=== PATIENT | male | born 1965 | race Two or more races ===

== ENCOUNTER 2020-09-12 12:32 | Emergency (ER) | payer OTHER ==
[~2020-09-12] VITALS: Ht 162.6 cm; Wt 70.3 kg
[2020-09-12 12:52] VITALS: BP 124/78
== END 2020-09-12 16:02 | disposition home or self-care (01) ==
LOC: ER 12:32
DX: R51.9 Headache, unspecified (principal)
CPT/HCPCS: 70450

== ENCOUNTER 2021-12-25 08:52 | Emergency (ER) | payer BC, OTHER ==
[~2021-12-25] VITALS: Ht 162.6 cm; Wt 66.0 kg
[2021-12-25 09:44] LABS: Basophils # (auto) 0 10 ^3/uL (0-0.2); Basophils % (auto) 0.6 % (0.0-2.0); Eosinophils # (auto) 0.1 10 ^3/uL (0-0.8); Eosinophils % (auto) 1.3 % (0.0-7.0); Hematocrit 43.5 % (41.0-53.0); Hemoglobin 14.7 g/dL (13.5-17.5); Lymphocytes # (auto) 1.4 10 ^3/uL (0.4-5.4); Lymphocytes % (auto) 26.6 % (10.0-50.0); Mean Corpuscular Hemoglobin 30.9 pg (28.0-32.0); Mean Corpuscular Hgb Conc. 33.8 g/dL (32.0-36.0); Mean Corpuscular Volume 91.5 fL (80.0-100.0); Monocytes # (auto) 0.6 10 ^3/uL (0-1.3); Monocytes % (auto) 11.6 % (0.0-12.0); Neutrophils # (auto) 3.2 10 ^3/uL (1.6-8.6); Neutrophils % (auto) 59.9 % (37.0-80.0); Nucleated Red Blood Cells % 0.1 %; Red Blood Cells 4.76 10^6/uL (4.5-5.90); Red Cell Distribution Width 12.8 % (11.8-14.3); White Blood Cell 5.4 10^3/uL (4.4-10.8)
[2021-12-25 10:00] LABS: Albumin 3.4 g/dL (3.4-5.0); Calcium 8.5 mg/dL (8.5-10.1); Potassium 4.1 mmol/L (3.5-5.1)
[2021-12-25 10:04] LABS: BUN/Creatinine Ratio 7.1; Bilirubin, Total 0.7 mg/dL (0.2-1.0); Total Protein 7.2 g/dL (6.4-8.2)
[2021-12-25 10:21] LABS: Urine Bacteria NONE SEEN /hpf (None Seen); Urine Blood Negative /uL (Negative); Urine Mucus FEW (None Seen); Urine Specific Gravity 1.015 (1.001-1.035); Urine WBC 1 /hpf (0 - 3)
[2021-12-25 10:22] LABS: Partial Thromboplastin Time 30.5 sec (24.6-33.4)
[2021-12-25 12:30] VITALS: BP 128/76
== END 2021-12-25 13:01 | disposition home or self-care (01) ==
LOC: ER 08:52
DX: K92.2 Gastrointestinal hemorrhage, unspecified (principal); E11.9 Type 2 diabetes mellitus without complications
CPT/HCPCS: 36415; 74176; 80053; 81001; 83690; 84484; 85025; 85610; 85730; 93005

== ENCOUNTER 2023-01-30 11:19 | Emergency (ER) | payer BC, MEDICAID ==
[~2023-01-30] VITALS: Ht 162.6 cm; Wt 66.3 kg
[2023-01-30] MEDS ORDERED: HYDR-3682 PO (14:56)
[2023-01-30] MEDS ORDERED: CALA1SUS2 EX (14:56)
[2023-01-30 15:08] VITALS: BP 149/84; PULSE 66; RESP 16; TEMP 97.9; O2SAT 100
== END 2023-01-30 15:08 | disposition home or self-care (01) ==
LOC: ER 11:19
DX: L29.9 Pruritus, unspecified (principal); R21 Rash and other nonspecific skin eruption; E11.9 Type 2 diabetes mellitus without complications; Z79.899 Other long term (current) drug therapy

== ENCOUNTER → 2023-11-10 | Outpatient (CLI) | payer MEDICAID ==
[~2023-11-10] MED LIST: CALA1SUS2 EX; HYDR-3682 PO
[2023-11-10 10:03] LABS: Alanine Aminotransferase 30 U/L (7-40); Albumin 4.2 g/dL (3.2-4.8); Alkaline Phosphatase 78 U/L (46-116); Anion Gap 4 (5-15); Aspartate Aminotransferase 26 U/L (13-40); BUN/Creatinine Ratio 9.3 (10.0-20.0); Bilirubin, Total 0.5 mg/dL (0.2-1.0); Blood Urea Nitrogen 8 mg/dL (9-23); Calcium 9.4 mg/dL (8.7-10.4); Carbon Dioxide 29 mmol/L (20-30); Chloride 106 mmol/L (98-107); Glucose 124 mg/dL (74-106); Sodium 139 mmol/L (136-145)
== END | disposition home or self-care (01) ==
LOC: LAB 08:26
PROVIDERS: ATTEND Orthopaedic Surgery Adult Reconstructive Orthopaedic Surgery
DX: E11.621 Type 2 diabetes mellitus with foot ulcer (principal)
CPT/HCPCS: 36415; 80053; 83036

== ENCOUNTER 2024-01-13 10:05 | Inpatient (IN) | payer MEDICAID ==
[~2024-01-13] VITALS: Ht 160 cm; Wt 64.2 kg
--- NOTE | 2024-01-13 10:49 | ED.PDOC ---
HPI (NEURO) HPI Comments 58 y.o male presents to the ED for a chief complaint of left sided numbness that started last night at 2200. Patient reports some tingling sensation to his left foot, nausea and sore throat this morning. Patient was seen at the clinic today and was sent to the ED to rule out a CVA. Patient denies any slurred speech, vision changes, chest pain, SOB, facial droopiness, fever or chills. Patient has a medical history of DM. Time Seen by MD: 10:41 Primary Care Provider: GEORGE Anderson Notes: Medications, Allergies Information Source: Patient Mode of Arrival: Wheelchair Severity: Moderate Timing: Hours Numbness Location: (L) Sided Onset: At rest Symptoms: Numbness History of: DM Modifying factors: Nothing Associated Signs and Symptoms: Numbness Past Medical History PAST MEDICAL HISTORY: DM Surgical History: Denies all surgeries Family History Family History: Reviewed,noncontributory to illness Social History Smoker: Non-Smoker Alcohol: Denies ETOH Use Drugs: Denies Drug Use Lives In: Home Constitutional: denies: chills, diaphoresis, fatigue, fever, malaise, sweats, weakness, others EENTM: reports: throat pain; denies: blurred vision, double vision, ear bleeding, ear discharge, ear drainage, ear pain, ear ringing, eye pain, eye redness, hearing loss, mouth pain, mouth swelling, nasal discharge, nose bleeding, nose congestion, nose pain, photophobia, tearing, throat swelling, voice changes, others Respiratory: denies: cough, hemoptysis, orthopnea, SOB at rest, shortness of breath, SOB with excertion, stridor, wheezing, others Cardiovascular: denies: chest pain, dizzy spells, diaphoresis, Dyspnea on exertion, edema, irregular heart beat, left arm pain, lightheadedness, palpitations, PND, syncope, others Gastrointestinal: reports: nausea; denies: abdomen distended, abdominal pain, blood streaked bowels, constipated, diarrhea, dysphagia, difficulty swallowing, hematemesis, melena, poor appetite, poor fluid intake, rectal bleeding, rectal pain, vomiting, others Genitourinary: denies: burning, dysuria, flank pain, frequency, hematuria, incontinence, penile discharge, penile sore, pain, testicle pain, testicle swelling, urgency, others Neurological: reports: left sided numbness; denies: dizziness, fainting, headache, left sided weakness, numbness, paresthesia, pre-existing deficit, right sided numbness, right sided weakness, seizure, speech problems, tingling, tremors, weakness, others Musculoskeletal: denies: back pain, gout, joint pain, joint swelling, muscle pain, muscle stiffness, neck pain, others Integumetry: denies: bruises, change in color, change in hair/nails, dryness, laceration, lesions, lumps, rash, wounds, others Allergic/Immunocompromised: denies: Difficulty Healing, Frequent Infections, Hives, Itching, others Hematologic/Lymphatic: denies: anemia, blood clots, easy bleeding, easy bruising, swollen glands, others Endocrine: denies: excessive hunger, excessive sweating, excessive thirst, excessive urination, flushing, intolerance to cold, intolerance to heat, unexplained weight gain, unexplained weight loss, others Psychiatric: denies: anxiety, bipolar disorder, depression, hopeless, panic disorder, schizophrenia, sleepless, suicidal, others All Other Systems: Reviewed and Negative Physical Exam General Appearance: Mild Distress HEENT: Normal ENT Inspection, Pharynx Normal, TMs Normal Neck: Full Range of Motion, Non-Tender, Normal, Normal Inspection Respiratory: Chest Non-Tender, Lungs Clear, No Accessory Muscle Use, No Respiratory Distress, Normal Breath Sounds Cardiovascular: No Edema, No JVD, No Murmur, No Gallop, Normal Peripheral P ulses, Regular Rate/Rhythm Breast Exam: Deferred Gastrointestinal: No Organomegaly, Non Tender, No Pulsatile Mass, Normal Bowel Sounds, Soft Genitalia: Deferred Pelvic: Deferred Rectal: Deferred Extremities: No calf tenderness, Normal capillary refill, No pedal edema Musculoskeletal : Apperance: Normal Neurologic: Alert, mud temperer II-XII nml as Tested, Motor Weakness, Normal Affect, Normal Mood, No Sensory Deficits Cerebellar Function: Normal Reflexes: Normal Skin: Dry, Pallor, Warm Lymphatic: No Adenopathy EKG EKG : Pulse Rate (adult): 100 Cardiac Rhythm: ST Was a procedure done? Was a procedure done?: No Differential Diagnosis (SZ) Seizure: N/A CVA: CVA, TIA General Weakness: Dehydration, Electrolyte imbalance X-Ray, Labs, Meds, VS Vital Signs Date Time Temp Pulse Resp B/P (MAP) Pulse Ox O2 Delivery O2 Flow Rate FiO2 01/13/24 15:40 82 17 95 Room Air* 0 21 01/13/24 15:40 82 17 110/69 (83) 95 01/13/24 15:05 99.2 99.2 01/13/24 15:05 99.2 01/13/24 13:55 100.1 01/13/24 13:48 100.1 01/13/24 13:48 100.1 100.1 01/13/24 12:59 100.0 01/13/24 12:49 100.0 99 18 144/84 (104) 98 100.0 01/13/24 12:49 99 18 98 Room Air 01/13/24 11:08 100 01/13/24 10:41 100.2 114 16 137/78 (97) 95 Lab Test 01/13/24 12:48 01/13/24 12:47 01/13/24 12:25 01/13/24 11:30 Range/Units SARS-CoV-2 Antigen (Rapid) Negative NEGATIVE Urine Color Light-yellow Yellow Urine Clarity Clear Clear Urine pH 6.5 5.0-9.0 Urine Specific [place] 1.017 1.001-1.035 Urine Protein Negative Negative Urine Ketones 1+ H Negative Urine Blood Negative Negative /uL Urine Nitrite Negative Negative Urine Bilirubin Negative Negative Urine Urobilinogen Normal Negative mg/dL Urine Leukocyte Esterase Negative Negative /uL Urine RBC <1 0 - 3 /hpf Urine WBC <1 0 - 3 /hpf Urine Squamous Epithelial Cells None seen <5 /hpf Urine Bacteria None seen None Seen /hpf Urine Mucus Few None Seen Urine Glucose Normal Normal mg/dL Troponin I High Sensitivity < 3 L < 3 L </=54 ng/L White Blood Count 6.3 4.4-10.8 10^3/uL Red Blood Count 5.05 4.5-5.90 10^6/uL Hemoglobin 16.3 13.5-17.5 g/dL Hematocrit 47.4 41.0-53.0 % Mean Corpuscular Volume 93.8 80.0-100.0 fL Mean Corpuscular Hemoglobin 32.3 H 28.0-32.0 pg Mean Corpuscular Hemoglobin Concent 34.4 32.0-36.0 g/dL Red Cell Distribution Width 13.6 11.8-14.3 % Platelet Count 138 L 140-450 10^3/uL Mean Platelet Volume 7.8 6.9-10.8 fL Neutrophils (%) (Auto) 71.9 37.0-80.0 % Lymphocytes (%) (Auto) 11.4 10.0-50.0 % Monocytes (%) (Auto) 15.9 H 0.0-12.0 % Eosinophils (%) (Auto) 0.6 0.0-7.0 % Basophils (%) (Auto) 0.2 0.0-2.0 % Neutrophils # (Auto) 4.5 1.6-8.6 10 ^3/uL Lymphocytes # (Auto) 0.7 0.4-5.4 10 ^3/uL Monocytes # (Auto) 1.0 0-1.3 10 ^3/uL Eosinophils # (Auto) 0 0-0.8 10 ^3/uL Basophils # (Auto) 0 0-0.2 10 ^3/uL Nucleated Red Blood Cells 0.1 % Sodium Level 136 136-145 mmol/L Potassium Level 5.0 3.5-5.1 mmol/L Chloride Level 103 98-107 mmol/L Carbon Dioxide Level 30 20-31 mmol/L Anion Gap 3 L 5-15 Blood Urea Nitrogen < 5 L 9-23 mg/dL Creatinine 1.11 0.700-1.30 mg/dL Glomerular Filtration Rate Calc 77 >90 mL/min BUN/Creatinine Ratio 4.5 L 10.0-20.0 Serum Glucose 175 H 74-106 mg/dL Calcium Level 10.3 8.7-10.4 mg/dL Current Medications Medications (Trade) Dose Ordered Sig/Gonzalez Route Start Time Stop Time Status Last Admin Acetaminophen (Tylenol Tablet) 1,000 mg ONCE ONCE PO 01/13/24 13:00 01/13/24 13:01 DC 01/13/24 12:59 Ibuprofen (Motrin Tablet) 600 mg ONCE ONCE PO 01/13/24 14:00 01/13/24 14:01 DC 01/13/24 13:55 EXAM: CT HEAD WITHOUT CONTRAST IMPRESSION: 1. No CT evidence of acute intracranial abnormality. If there is clinical concern for acute ischemia, MRI is recommended for further evaluation. The patient was given acetaminophen 1000 mg by mouth The patient was then given Motrin 600 mg by mouth The patient's urine test is negative The CBC and chemistry panel are within normal limits The patient was still having significant amount of generalized weakness The patient is now afebrile after receiving the above medication The patient was admitted Time of 1ST Reevaluation: 10:47 Reevaluation 1ST: Unchanged Patient Education/Counseling: Diagnosis, Treatment, Prognosis Family Education/Counseling: No Family Present Departure 1 Departure Time of Disposition: 16:39 Impression: Primary Impression: Left sided numbness Disposition: 09 ADMITTED INPATIENT Admit to: [facility] Condition: Fair Critical Care Note Critical Care Time?: Yes (35 min-critical care time only) Stability Stability form required: Yes Unstable for transfer: Telemetry monitoring (Telemetry monitoring required), ED Physician Assesment (Clinical assesment) I personally scribed for MARIETTA PHILLIP MD ([email or web address]) on 01/13/24 at 10:49. Electronically submitted by Saumya Ayala ([facility]). I personally scribed for MARIETTA PHILLIP MD ([email or web address]) on 01/13/24 at 11:08. Electronically submitted by Saumya [facility]ala ([facility] I personally scribed for MARIETTA PHILLIP MD ([email or web address]) on 01/13/24 at 12:59. Electronically submitted by Saumya Ayala ([facility]). MARIETTA PHILLIP MD Jan 13, 2024 10:49
[2024-01-13 11:51] LABS: Chloride 103 mmol/L (98-107); Sodium 136 mmol/L (136-145)
[2024-01-13 11:52] LABS: Anion Gap 3 (5-15); Calcium 10.3 mg/dL (8.7-10.4); Carbon Dioxide 30 mmol/L (20-31)
[2024-01-13 11:57] LABS: Glucose 175 mg/dL (74-106)
[2024-01-13 11:58] LABS: BUN/Creatinine Ratio 4.5 (10.0-20.0); Blood Urea Nitrogen < 5 mg/dL (9-23)
[2024-01-13 12:01] LABS: Basophils # (auto) 0 10 ^3/uL (0-0.2); Basophils % (auto) 0.2 % (0.0-2.0); Eosinophils # (auto) 0 10 ^3/uL (0-0.8); Eosinophils % (auto) 0.6 % (0.0-7.0); Hematocrit 47.4 % (41.0-53.0); Hemoglobin 16.3 g/dL (13.5-17.5); Lymphocytes # (auto) 0.7 10 ^3/uL (0.4-5.4); Lymphocytes % (auto) 11.4 % (10.0-50.0); Mean Corpuscular Hemoglobin 32.3 pg (28.0-32.0); Mean Corpuscular Hgb Conc. 34.4 g/dL (32.0-36.0); Mean Corpuscular Volume 93.8 fL (80.0-100.0); Monocytes % (auto) 15.9 % (0.0-12.0); Neutrophils # (auto) 4.5 10 ^3/uL (1.6-8.6); Neutrophils % (auto) 71.9 % (37.0-80.0); Nucleated Red Blood Cells % 0.1 %; Platelet Count (auto) 138 10^3/uL (140-450); Red Blood Cells 5.05 10^6/uL (4.5-5.90); Red Cell Distribution Width 13.6 % (11.8-14.3); White Blood Cell 6.3 10^3/uL (4.4-10.8)
--- NOTE | 2024-01-13 12:19 | DVH ---
EXAM: CT HEAD WITHOUT CONTRAST INDICATION: left side numbness TECHNIQUE: CT of the head without intravenous contrast. Radiation Dose Information: CT Dose: CTDI volume is 53.24 mGy. Dose-length product is 942.65 mGy*cm The dose indicators for CT are the volume Computed Tomography (CT) Dose Index (CTDIvol) and the Dose Length Product (DLP), and are measured in units of mGy and mGy-cm, respectively. These indicators are not patient dose, but values generated from the CT scanner acquisition factors. The report includes radiation exposure data for exposures received during this examination. COMPARISON: HEAD WITHOUT CONTRAST on DOS: 09/12/20 FINDINGS: There is no evidence of acute intracranial hemorrhage, extra-axial collection, mass effect, midline s hift, herniation or hydrocephalus. The ventricles, sulci and cisterns are age appropriate. The hull-white differentiation is intact. Patchy periventricular and subcortical white matter hypoattenuation is nonspecific but may be related to small vessel ischemic disease. Right maxillary sinus mucous retention cyst versus polyp. The bilateral mastoid air cells are clear. The surrounding soft tissues and osseous structures are unremarkable. IMPRESSION: 1. No CT evidence of acute intracranial abnormality. If there is clinical concern for acute ischemia, M RI is recommended for further evaluation. HS:Y
[2024-01-13] MEDS: ACETAMINOPHEN 500 MG TAB PO ONE (12:59)
[2024-01-13 13:14] LABS: Urine Bacteria None Seen /hpf (None Seen)
[2024-01-13 13:31] LABS: Urine Blood Negative /uL (Negative); Urine Clarity Clear (Clear); Urine Color Light-Yellow (Yellow); Urine Mucus FEW (None Seen); Urine Protein, UAD Negative (Negative); Urine Specific Gravity 1.017 (1.001-1.035); Urine Urobilinogen Normal (Negative); Urine WBC <1 /hpf (0 - 3); Urine pH 6.5 (5.0-9.0)
[2024-01-13] MEDS: IBUPROFEN 600 MG TAB PO ONE (13:55)
[2024-01-13 14:02] LABS: COVID19 ANTIGEN SOFIA FIA NEGATIVE (NEGATIVE)
[2024-01-13 15:40] VITALS: PULSE 82; RESP 17; O2SAT 95
[2024-01-13] MEDS ORDERED: ONDANSETRON HCL 4 MG/2 ML VIAL IV PRN (17:45)
[2024-01-13] MEDS ORDERED: DEXTROSE (50%) 50ML SYRG IV PRN (18:00)
[2024-01-13 18:36] VITALS: PULSE 70; RESP 17; O2SAT 95
--- NOTE | 2024-01-13 18:54 | DVHHP2 ---
History of Present Illness Reason for Visit: Left-sided numbness History of Present Illness 58-year-old male presented to the ED with chief complaint of left-sided numbness, that started last night at 10:00 p.m.. Patient reports some tingling sensation to the left foot, nausea and sore throat this morning. Patient denies any slurred speech, vision changes, chest pain, facial drooping, shortness of breath, fever or chills. Currently patient does not have the numbness any longer. Once patient was in ER bed he no longer had the numbness. Patient was admitted for further evaluation medical management. Past Medical History Diabetes mellitus type 2 Past Surgical History Denies Family History: None Family History Reviewed noncontributory to the management of this case Smoke: No ALCOHOL: none Drugs: None Lives: with Family Review of Systems Constitutional: No: Fever, Chills, Sweats, Weakness, Malaise, Other Eyes: No: Pain, Vision change, Conjunctivae inflammation, Eyelid inflammation, Other, Redness ENT: No: Ear pain, Ear discharge, Nose pain, Nose discharge, Nose congestion, Mouth pain, Mouth swelling, Throat pain, Throat swelling, Other Respiratory: No: Cough, Dry, Shortness of breath, SOB with excertion, Wheezing, Hemoptysis, Pleuritic Pain, Sputum, Wheezing, Other Cardiovascular: No: Chest Pain, Palpitations, Orthopnea, Paroxysmal Noc. Dyspnea, Edema, Lt Headedness, Other Gastrointestinal: No: Nausea, Vomiting, Abdominal Pain, Diarrhea, Constipation, Melena, Hematochezia, Other Genitourinary: No Dysuria, No Frequency, No Incontinence, No Hematuria, No Retention, No Other Musculoskeletal: No: other, neck pain, shoulder pain, arm pain, back pain, hand pain, leg pain, foot pain Skin: No: Rash, Lesions, Jaundice, Bruising, Other Neurological: No: Weakness, Numbness, Incoordination, Change in speech, Confusion, Seizures, Other Allergies: Coded Allergies: NO KNOWN ALLERGIES (Unverified , 09/12/20) Medications Current Medications Medications Dose Ordered Sig/Gonzalez Route Start Time Stop Time Status Last Admin Dose Admin Acetaminophen 650 mg Q6HP PRN PO 01/13/24 17:45 Acetaminophen/ Hydrocodone Bitart 1 tab Q4HP PRN PO 01/13/24 17:45 Ondansetron HCl 4 mg Q4HP PRN IV 01/13/24 17:45 Guaifenesin/ Dextromethorphan 10 ml Q4HP PRN PO 01/13/24 17:45 Diagnostic Test (Pha) 1 strip ACHS 01/13/24 22:00 Insulin Human Regular HS SC 01/13/24 22:00 Insulin Human Regular AC SC 01/14/24 07:00 Dextrose 50 ml UD PRN IV 01/13/24 18:00 Exam Vital Signs Vital Signs Date Time Temp Pulse Resp B/P (MAP) Pulse Ox O2 Delivery O2 Flow Rate FiO2 01/13/24 18:00 67 15 107/65 (79) 92 01/13/24 15:40 Room Air* 0 21 01/13/24 15:05 99.2 99.2 General Appearance: Alert, Oriented X3, Cooperative, No acute distress HEENT: Atraumatic, PERRLA, EOMI, Mucous membr. moist/pink Respiratory: Clear to auscultation, Normal air movement Cardiovascular: Regular rate, Normal S1, Normal S2, No murmurs Abdominal: Normal bowel sounds, Soft, No tenderness, No hepatospenomegaly, No masses Extremities: No clubbing, No cyanosis, No edema, Normal pulses, No tenderness/swelling Skin: No rashes, No breakdown, No significant lesion Neuro: Normal gait, Normal speech, Strength at 5/5 X4 ext, Normal tone, Sensation intact, Cranial nerves 3-12 NL, Reflexes 2+ Psych/Mental Status: Mental status NL, Mood NL Labs/Xrays Labs, imaging and ED notes reviewed Labs Test 01/13/24 12:48 01/13/24 12:47 01/13/24 12:25 01/13/24 11:30 Range/Units SARS-CoV-2 Antigen (Rapid) Negative NEGATIVE Urine Color Light-yellow Yellow Urine Clarity Clear Clear Urine pH 6.5 5.0-9.0 Urine Specific [place] 1.017 1.001-1.035 Urine Protein Negative Negative Urine Ketones 1+ H Negative Urine Blood Negative Negative /uL Urine Nitrite Negative Negative Urine Bilirubin Negative Negative Urine Urobilinogen Normal Negative mg/dL Urine Leukocyte Esterase Negative Negative /uL Urine RBC <1 0 - 3 /hpf Urine WBC <1 0 - 3 /hpf Urine Squamous Epithelial Cells None seen <5 /hpf Urine Bacteria None seen None Seen /hpf Urine Mucus Few None Seen Urine Glucose Normal Normal mg/dL Troponin I High Sensitivity < 3 L </=54 ng/L White Blood Count 6.3 4.4-10.8 10^3/uL Red Blood Count 5.05 4.5-5.90 10^6/uL Hemoglobin 16.3 13.5-17.5 g/dL Hematocrit 47.4 41.0-53.0 % Mean Corpuscular Volume 93.8 80.0-100.0 fL Mean Corpuscular Hemoglobin 32.3 H 28.0-32.0 pg Mean Corpuscular Hemoglobin Concent 34.4 32.0-36.0 g/dL Red Cell Distribution Width 13.6 11.8-14.3 % Platelet Count 138 L 140-450 10^3/uL Mean Platelet Volume 7.8 6.9-10.8 fL Neutrophils (%) (Auto) 71.9 37.0-80.0 % Lymphocytes (%) (Auto) 11.4 10.0-50.0 % Monocytes (%) (Auto) 15.9 H 0.0-12.0 % Eosinophils (%) (Auto) 0.6 0.0-7.0 % Basophils (%) (Auto) 0.2 0.0-2.0 % Neutrophils # (Auto) 4.5 1.6-8.6 10 ^3/uL Lymphocytes # (Auto) 0.7 0.4-5.4 10 ^3/uL Monocytes # (Auto) 1.0 0-1.3 10 ^3/uL Eosinophils # (Auto) 0 0-0.8 10 ^3/uL Basophils # (Auto) 0 0-0.2 10 ^3/uL Nucleated Red Blood Cells 0.1 % Sodium Level 136 136-145 mmol/L Potassium Level 5.0 3.5-5.1 mmol/L Chloride Level 103 98-107 mmol/L Carbon Dioxide Level 30 20-31 mmol/L Anion Gap 3 L 5-15 Blood Urea Nitrogen < 5 L 9-23 mg/dL Creatinine 1.11 0.700-1.30 mg/dL Glomerular Filtration Rate Calc 77 >90 mL/min BUN/Creatinine Ratio 4.5 L 10.0-20.0 Serum Glucose 175 H 74-106 mg/dL Hemoglobin A1c 7.1 H <5.7 % A1C Calcium Level 10.3 8.7-10.4 mg/dL Assessment/Plan Assessment/Plan Rule out CVA Admit to medical/surgical CTA head showed no acute findings Troponins negative x3 Monitor neuro goes for any signs of deficits throughout shift Diabetes mellitus type 2 Accu-Cheks a.c. HS Insulin sliding scale Hemoglobin A1c 7.1 FEN/PPX GI and VTE prophylaxis not indicated Consistent carb diet Plan discussed with: Patient My Orders Orders - CHERIE OCHOA Procedure Category Date Status Time Admit ADMIT 01/13/24 Transmitted 17:43 Code Status CODE 01/13/24 Transmitted 17:43 Vital Signs [facility] 01/13/24 In Process 17:43 Review Orders With [facility] 01/13/24 In Process Adm. 17:43 Bedrest With Bathroom [facility] 01/13/24 In Process Privileg 17:43 Acetaminophen Tablet [facility] 01/13/24 In Process (Tylenol Tablet) 17:45 Notify Md Of Changes [facility] 01/13/24 In Process From Base 17:43 Advance Directive [facility] 01/13/24 In Process 17:43 Basic Metabolic Panel LAB 01/14/24 Verified 04:00 Complete Blood Count LAB 01/14/24 Verified 04:00 Patient Condition ORDERS 01/13/24 Transmitted 17:43 Allergies [facility]A 01/13/24 In Process 17:43 Hydrocodone-Acet PHA 01/13/24 In Process 5/325mg Tab ([place] 17:45 Ondansetron Hcl PHA 01/13/24 In Process (Zofran) 17:45 Guaifenesin-Dextromet PHA 01/13/24 In Process Liquid (Robitussin 17:45 Glucose Blood PHA 01/13/24 In Process (Accu-Chek Comfort 22:00 Insulin R (Human) PHA 01/13/24 In Process (Insulin R) 22:00 Insulin R (Human) PHA 01/14/24 In Process (Insulin R) 07:00 Dextrose 50% Syringe PHA 01/13/24 In Process 18:00 Get List Of Home ORDERS 01/13/24 Verified Medications 18:46 Date of Service: Jan 13, 2024 Billing Provider: CHERIE OCHOA Common Visit Codes: [id number] INP/OBS CARE (HIGH) CHERIE OCHOA Jan 13, 2024 18:54
[2024-01-13] MEDS ORDERED: METF-371 PO (18:55)
[2024-01-13] MEDS ORDERED: SEMA4INJ SC (18:55)
[2024-01-13 20:55] VITALS: BP 110/63; PULSE 67; RESP 17; TEMP 98.2; O2SAT 97
[2024-01-13] MEDS: ACCU-CHEK COMFORT CURVE STRIP VI SCH (23:11)
[2024-01-13] MEDS: guaiFENesin-DM 100/10mg/5ml SYR PO PRN (23:11)
[2024-01-13] MEDS: InsuLIN REG 1unit/0.01ml Soln (100units/ml) SC SCH (23:35)
[2024-01-14 00:59] VITALS: BP 114/63; PULSE 67; RESP 18; TEMP 98.4; O2SAT 100
[2024-01-14 05:00] VITALS: BP 127/64; PULSE 76; RESP 17; TEMP 98.1; O2SAT 96
[2024-01-14] MEDS: ACETAMINOPHEN 325 MG TAB PO PRN (06:01)
[2024-01-14] MEDS: InsuLIN REG 1unit/0.01ml Soln (100units/ml) SC SCH (06:07)
[2024-01-14 06:09] LABS: Basophils # (auto) 0 10 ^3/uL (0-0.2); Basophils % (auto) 0.3 % (0.0-2.0); Eosinophils # (auto) 0.1 10 ^3/uL (0-0.8); Hematocrit 44.8 % (41.0-53.0); Hemoglobin 15.7 g/dL (13.5-17.5); Lymphocytes # (auto) 0.9 10 ^3/uL (0.4-5.4); Lymphocytes % (auto) 17.6 % (10.0-50.0); Mean Corpuscular Hemoglobin 32.5 pg (28.0-32.0); Monocytes # (auto) 0.7 10 ^3/uL (0-1.3); Monocytes % (auto) 15.2 % (0.0-12.0); Neutrophils # (auto) 3.2 10 ^3/uL (1.6-8.6); Neutrophils % (auto) 65.9 % (37.0-80.0); Nucleated Red Blood Cells % 0.1 %; Platelet Count (auto) 118 10^3/uL (140-450); Red Blood Cells 4.82 10^6/uL (4.5-5.90); Red Cell Distribution Width 13.7 % (11.8-14.3); White Blood Cell 4.9 10^3/uL (4.4-10.8)
[2024-01-14 06:26] LABS: Anion Gap 7 (5-15); Carbon Dioxide 26 mmol/L (20-31); Chloride 105 mmol/L (98-107); Potassium 4.1 mmol/L (3.5-5.1); Sodium 138 mmol/L (136-145)
[2024-01-14 06:27] LABS: Calcium 9.3 mg/dL (8.7-10.4)
[2024-01-14 06:32] LABS: BUN/Creatinine Ratio 7.7 (10.0-20.0); Blood Urea Nitrogen 7 mg/dL (9-23); Glucose 127 mg/dL (74-106)
[2024-01-14 09:32] VITALS: BP 109/59; PULSE 91; RESP 17; TEMP 100.7; O2SAT 93
[2024-01-14 13:00] VITALS: BP 110/55; PULSE 87; RESP 17; TEMP 98; O2SAT 94
--- NOTE | 2024-01-14 16:27 | DVHPN2 ---
Progress Note - Dictate Date Seen: Jan 14, 2024 Medical Necessity Reason Pt with a Central, PICC or Fol: No Subjective Took over patient's care today as transferred care to ca by hospitalist. Patient's chart is reviewed and seen and evaluated. Admitted here overnight for slurred speech. Which seems to be improved today. TIA workup is undergoing. He is tolerating oral diet. vital signs Vital Sign Date Time Temp Pulse Resp B/P (MAP) Pulse Ox O2 Delivery O2 Flow Rate FiO2 01/14/24 13:00 98.0 87 17 110/55 (73) 94 98.0 01/14/24 08:00 Room Air* 0 21 Total Intake and Output 01/13/24 01/13/24 01/14/24 15:00 23:00 07:00 Intake Total 200 ml 400 ml Balance 200 ml 400 ml medications Current Medications Medications Dose Ordered Sig/Gonzalez Route Start Time Stop Time Status Last Admin Dose Admin Acetaminophen 650 mg Q6HP PRN PO 01/13/24 17:45 01/14/24 06:01 650 MG Acetaminophen/ Hydrocodone Bitart 1 tab Q4HP PRN PO 01/13/24 17:45 Ondansetron HCl 4 mg Q4HP PRN IV 01/13/24 17:45 Guaifenesin/ Dextromethorphan 10 ml Q4HP PRN PO 01/13/24 17:45 01/13/24 23:11 10 ML Diagnostic Test (Pha) 1 strip ACHS 01/13/24 22:00 01/14/24 12:16 1 STRIP Insulin Human Regular HS SC 01/13/24 22:00 01/13/24 23:35 3 UNITS Insulin Human Regular AC SC 01/14/24 07:00 01/14/24 06:07 2 UNITS Dextrose 50 ml UD PRN IV 01/13/24 18:00 objective Alert awake oriented x3. Japanese-speaking Ativan. Not confused. HEENT neck supple no JVD pupils equal round react to light. Heart regular rate and rhythm S1-S2 without murmurs. Lungs fair air movement chest tube will expansion no rales wheezes. Abdomen is soft nontender nondistended positive bowel sounds. Extremities no edema positive distal pedal pulses. Neurologically no focal neurologic deficits noted. laboratory and microbiology Laboratory Tests 01/14/24 05:30 Test 01/14/24 05:30 Range/Units Serum Glucose 127 H 74-106 mg/dL Assessment/Plan Hypertension, diabetes mellitus type 2 TIA versus CVA I will start him on aspirin and a statin. We will check his lipid panel. We will control his blood pressure. Neurological consultation. MRI of the brain without contrast. CT angiogram of the head and neck ruled out any stenosis. 2D echocardiogram. Patient underwent counseling regarding diet exercise and good blood pressure control. Otherwise further clinical management per clinical course and pending evaluations studies. Discussed with the patient as well as nurse at bedside regarding care plan. Problems(with codes): (1) Left sided numbness (2) DM (diabetes mellitus) (3) Headache Plan discussed with: Patient, Other Date of Service: Jan 14, 2024 Billing Provider: BERTA MENA MD Common Visit Codes: [id number] INP/OBS CARE(MOD) BERTA MENA MD Jan 14, 2024 16:27
[2024-01-14 17:19] VITALS: BP 106/59; PULSE 94; RESP 18; TEMP 99.5; O2SAT 96
--- NOTE | 2024-01-14 18:03 | DVH ---
Procedure: CT ANGIO HEAD/Neck HISTORY: cva/tia Comparison Study: None Exam Date:01/14/2024 04:58 PM TECHNIQUE: CTA head without and with intravenous contrast. CTA neck with intravenous contrast. [employer]D [employer] postprocessing was performed and images were used for interpretation and reporting. Radiation Dose : CT Dose: CTDI volume is 5.18 mGy. Dose-length product is 868.41 mGy*cm Omnipaque 350: 100 mL FINDINGS: CTA head: There is normal enhancement of the visualized distal internal carotid, anterior and middle cerebral a rteries. There is a normal anterior communicating artery complex. There are bilateral posterior commu nicating arteries. The vertebral, basilar, cerebellar and posterior cerebral arteries are within norm al limits. The early parenchymal enhancement is grossly unremarkable. The visualized intracranial aiden ous structures are grossly unremarkable. CTA neck: The visualized thoracic aortic arch and proximal great vessels are unremarkable. The left common, int ernal and external carotid arteries are within normal limits. The right common, internal and external carotid arteries are within normal limits. The cervical segments of the right and left vertebral art eries are within normal limits. The limited visualized lung apices are clear. The surrounding soft ti ssues and osseous structures are otherwise unremarkable. IMPRESSION: 1. No evidence of hemodynamically significant intracranial stenosis, proximal occlusion or aneurysm. No evidence of hemodynamically significant cervical stenosis or dissection. CAROTID STENOSIS REFERENCE Distal internal carotid artery diameter as the denominator for stenosis measurement: MILD = <50% stenosis. MODERATE = 50-69% stenosis. SEVERE = 70-89% stenosis. CRITICAL = 90-99% stenosis. OCCLUDED = 100% stenosis. All CT scans at this medical facility are performed using dose modulation techniques as appropriate t o a performed exam including the following: Automated exposure control was utilized; adjustment of th e MA and/or KV according to patient size; and use of iterative reconstruction technique.
[2024-01-14] MEDS: ASPirin 81 mg TAB PO ONE (19:54)
[2024-01-14] MEDS: SODIUM CHLORIDE 0.9% 1,000 ML IV SCH (19:54)
[2024-01-14 20:52] VITALS: BP 111/69; PULSE 82; RESP 17; TEMP 98.3; O2SAT 94
[2024-01-14] MEDS: ATORVASTATIN 20 MG TAB PO SCH (22:47)
[2024-01-15] VITALS (7 sets, daily range): BP systolic 105–136; BP diastolic 59–70; PULSE 74–108; RESP 15–19; TEMP 97.9–102.6; O2SAT 91–97
--- NOTE | 2024-01-15 02:32 | BSKYNEURO ---
[facility] Note # Demographics Consult Type: Acute Stroke Level 2 (4.5-24 hrs) Patient Location: Inpatient First Name: Jerome Last Name: Ted Date of : 1965 Age: 58 Gender: Male Facility: [facility] Time of Initial Page (): 01/15/2024, 02:12 Time of Return Call (): 01/15/2024, 02:12 # HPI Chief Complaint: - numbness - speech changes History: 58 yo M p/w L sided numbness and slurred speech. His symptoms resolved upon arrival to the ER. Last Known Normal: 2 days ago # Scores Time of exam and NIHSS (): 01/15/2024, 02:27 Level of Consciousness 1a: [0] = Alert; keenly responsive LOC Questions 1b: [0] = Answers both questions correctly LOC Commands 1c: [0] = Performs both tasks correctly Best Gaze 2: [0] = Normal Visual 3: [0] = No visual loss Facial Palsy 4: [0] = Normal symmetrical movements Motor Arm Left 5a: [0] = No drift Motor Arm Right 5b: [0] = No drift Motor Leg Left 6a: [0] = No drift Motor Leg Right 6b: [0] = No drift Limb Ataxia 7: [0] = Absent Sensory 8: [0] = Normal Best Language 9: [0] = No aphasia Dysarthria 10: [0] = Normal Extinction and Inattention 11: [0] = No abnormality NIHSS Total: 0 ABCD2 Score for TIA: [0] = Age >/= 60 years: No [0] = Clinical features of the TIA: other symptoms [2] = Duration of symptoms: >/= 60 minutes [1] = History of diabetes: Yes ABCD2 Total: 3 # ROS Additional: - complete review of systems otherwise negative # PMH-FH-SH Past Medical History: - Diabetes # Data Head CT: - no bleed CTA Head: no large vessel occlusion # Assessment Impression: - Transient Ischemic Attack # Plan Thrombolytic/Intervention: NOT IV Thrombolysis or IA Intervention candidate Thrombolytic Exclusion: > 4.5 hours Intraarterial Exclusion: - no large vessel occlusion (LVO) Labs: - hemoglobin A1c - lipid panel Imaging: (urgency: routine): - MRI Brain without contrast Diagnostic Test: - echo with bubble study Medication: - aspirin 81 mg daily - start statin with goal of LDL < 70 Other: - If patient has any neurological deterioration please call me back immediately - telemetry monitoring - neurology referral as outpatient # Logistics Attestation of consult completion: The patient is located at: [facility]. Facility staff participated in the visit. I performed this telemedicine visit from my offsite office utilizing interactive 2 way audio and visual telecommunication technology. Total time spent in telemedicine encounter: I spent 20 minutes reviewing clinical data and/or imaging, obtaining history, examining the patient, communicating with the onsite care team, and in preparation of this report. # Demographics First Name: Jerome Last Name: Jean Facility: [facility] Electronically signed at 01/15/2024 02:31 (Arthur Time) by Raphael Gutierrez MD Yes RAPHAEL GUTIERREZ MD Jan 15, 2024 02:32
[2024-01-15 07:24] LABS: Chloride 103 mmol/L (98-107); Potassium 4.7 mmol/L (3.5-5.1); Sodium 137 mmol/L (136-145)
[2024-01-15 07:25] LABS: Anion Gap 5 (5-15); Calcium 9.1 mg/dL (8.7-10.4); Carbon Dioxide 29 mmol/L (20-31)
[2024-01-15 07:30] LABS: BUN/Creatinine Ratio 9.1 (10.0-20.0); Blood Urea Nitrogen 9 mg/dL (9-23); Glucose 126 mg/dL (74-106); Triglycerides 80 mg/dL (< 150)
[2024-01-15 07:31] LABS: LDL Cholesterol 102 mg/dL (< 100)
[2024-01-15 07:32] LABS: Cholesterol 155 mg/dL (< 200); HDL Cholesterol 44 mg/dL (40-59)
[2024-01-15] MEDS: ASPirin 81 mg TAB PO SCH (08:10)
[2024-01-15] MEDS: HYDROcodone-ACET 5/325MG TAB PO PRN (08:10)
--- NOTE | 2024-01-15 11:59 | DVH ---
EXAMINATION: MRI BRAIN HEAD WO CONTRAST INDICATION: CVA/ TIA COMPARISON: CT scan of the head dated 01/13/2024. TECHNIQUE: Multiplanar, multisequence magnetic resonance imaging of the brain was performed without the use of i ntravenous contrast. FINDINGS: No evidence of acute infarct. No intracranial hemorrhage. No mass effect. Posterior fossa structures are unremarkable. There is periventricular/deep white matter T2/FLAIR hyperintensity is nonspecific, but most commonly associated with chronic microvascular disease. The ventricles and sulci are normal in size for age. Clear basal cisterns. Flow voids in the major intracranial vessels are maintained. No abnormality of the orbits. Mastoid air cells are clear. There is mucosal thickening in the right maxillary sinus. No abnormality of the visualized osseous structures and extracranial soft tissues. IMPRESSION: 1. No acute infarct, intracranial hemorrhage, mass effect, or hydrocephalus.
--- NOTE | 2024-01-15 14:18 | DVH ---
CHEST RADIOGRAPH Indication:fever Technique: Single frontal view of the chest was obtained Comparison: EKG on DOS: 12/25/21 FINDINGS: Lines and Tubes: None Lungs: Infiltrate and or atelectasis right lower lobe with elevation of the right diaphragm.. Pleura: No effusion. No pneumothorax. Cardiomediastinal contours: Unremarkable Bones: No acute osseous abnormality. IMPRESSION: 1. Infiltrate right lower lobe with atelectasis elevation of right diaphragm.
--- NOTE | 2024-01-15 16:06 | DVHPN2 ---
Subjective Patient is clinically stable except that he had a fever up to 101 today. Patient denies any cough or congestion. Urinalysis does not show any evidence of infection. Changes from previous H/P or p: No Changes Eyes: No Pain, No Vision change, No Conjunctivae inflammation, No Eyelid inflammation, No Other, No Redness ENT: No Ear pain, No Ear discharge, No Nose pain, No Nose discharge, No Nose congestion, No Mouth pain, No Mouth swelling, No Throat pain, No Throat swelling, No Other Cardiovascular: No Chest Pain, No Palpitations, No Orthopnea, No Paroxysmal Noc. Dyspnea, No Edema, No Lt Headedness, No Other Respiratory: No Cough, No Dry, No Shortness of breath, No SOB with excertion, No Wheezing, No Hemoptysis, No Pleuritic Pain, No Sputum, No Other Gastrointestinal: No Nausea, No Vomiting, No Abdominal Pain, No Diarrhea, No Constipation, No Melena, No Hematochezia, No Other Genitourinary: No Dysuria, No Frequency, No Incontinence, No Hematuria, No Retention, No Other Musculoskeletal: No other, No neck pain, No shoulder pain, No arm pain, No back pain, No hand pain, No leg pain, No foot pain Skin: No Rash, No Lesions, No Jaundice, No Bruising, No Other Objective Vitals Vital Signs Date Time Temp Pulse Resp B/P (MAP) Pulse Ox O2 Delivery O2 Flow Rate FiO2 01/15/24 13:00 97.9 77 15 123/68 (86) 96 97.9 01/15/24 08:00 Room Air* 0 21 Intake/Output Intake and Output 01/15/24 07:00 Intake Total 1220 ml Output Total 200 ml Balance 1020 ml Intake Oral 420 ml IV Total 800 ml Output Urine Total 200 ml # Voids 2 Exam Comfortable in bed. Able to swallow without problems. Alert awake oriented x3. HEENT neck supple no JVD. Heart regular rate and rhythm S1 and S2. Lungs without rales wheezes. Abdomen soft nontender positive bowel sounds. Extremities no edema positive pulses Medications Current Medications Medications Dose Ordered Sig/Gonzalez Route Start Time Stop Time Status Last Admin Dose Admin Acetaminophen/ Hydrocodone Bitart 1 tab Q4HP PRN PO 01/13/24 17:45 01/15/24 08:10 1 TAB Ondansetron HCl 4 mg Q4HP PRN IV 01/13/24 17:45 Guaifenesin/ Dextromethorphan 10 ml Q4HP PRN PO 01/13/24 17:45 01/13/24 23:11 10 ML Diagnostic Test (Pha) 1 strip ACHS 01/13/24 22:00 01/15/24 11:30 1 STRIP Insulin Human Regular HS SC 01/13/24 22:00 01/14/24 22:48 3 UNITS Insulin Human Regular AC SC 01/14/24 07:00 01/15/24 12:38 6 UNITS Dextrose 50 ml UD PRN IV 01/13/24 18:00 Aspirin 81 mg DAILY PO 01/15/24 10:00 01/15/24 08:10 81 MG Atorvastatin Calcium 40 mg HS PO 01/14/24 22:00 01/14/24 22:47 40 MG Sodium Chloride 1,000 ml @ 75 mls/hr [id number] IV 01/14/24 16:30 01/14/24 19:54 75 MLS/HR Acetaminophen 650 mg Q6HP PRN PO 01/15/24 13:45 Piperacillin Sod/ Tazobactam Sod 100 ml @ 25 mls/hr Q6HR IV 01/15/24 18:00 UNV Laboratory Results Laboratory Tests 01/14/24 05:30 01/15/24 06:00 Chemistry Test 01/15/24 06:00 Calcium Level 9.1 mg/dL (8.7-10.4) Lipid panel Test 01/15/24 06:00 Cholesterol Level 155 mg/dL (< 200) HDL Cholesterol 44 mg/dL (40-59) Triglycerides Level 80 mg/dL (< 150) Urinalysis Test 01/13/24 12:47 Urine Color Light-yellow (Yellow) Urine Clarity Clear (Clear) Urine pH 6.5 (5.0-9.0) Urine Specific [place] 1.017 (1.001-1.035) Urine Protein Negative (Negative) Urine Ketones 1+ (Negative) H Urine Blood Negative /uL (Negative) Urine Nitrite Negative (Negative) Urine Bilirubin Negative (Negative) Urine Urobilinogen Normal mg/dL (Negative) Urine Leukocyte Esterase Negative /uL (Negative) Urine RBC <1 /hpf (0 - 3) Urine WBC <1 /hpf (0 - 3) Urine Squamous Epithelial Cells None seen /hpf (<5) Urine Bacteria None seen /hpf (None Seen) Urine Mucus Few (None Seen) Urine Glucose Normal mg/dL (Normal) Microbiology Microbiology Date/Time Source Procedure Growth Status 01/14/24 14:02 Blood Blood Culture - Preliminary NO GROWTH AFTER 24 HOURS OF INCUBATION. Resulted Labs and/or images reviewed: Labs reviewed by me Assessment/Plan Assessment/Plan We will follow up blood cultures and for his elevated fever. I will order a chest x-ray. Start him on empiric antibiotics. Follow the labs. His neurological workup for TIA/stroke so far been normal. Continue activity ambulation. Otherwise follow clinical management per clinical course and pending evaluations and studies. Discussed with the nurse regarding care plan Plan discussed with: Patient, Other My Orders Orders - BERTA MENA MD Procedure Category Date Status Time Aspirin Tablet PHA 01/15/24 In Process 10:00 Atorvastatin (Lipitor) PHA 01/14/24 In Process 22:00 Angio Head/Neck CT 01/14/24 Resulted 16:20 *Consult Dr[address] Cordero CONS 01/14/24 Transmitted Forte 16:20 Sodium Chloride 0.9% PHA 01/14/24 In Process 16:30 Brain Head Wo Contrast MRI 01/15/24 Resulted Chest Portable XY 01/15/24 Resulted 13:40 Acetaminophen Tablet PHA 01/15/24 In Process (Tylenol Tablet) 13:45 Complete Blood Count LAB 01/16/24 Verified 04:00 Comprehensive LAB 01/16/24 Verified Metabolic Panel 04:00 Piperacillin-Tazob PHA 01/15/24 Logged 3.375gm (Zosyn 3.375g 18:00 Problem List: (1) DM (diabetes mellitus) (2) Headache (3) Left sided numbness Date of Service: Jan 15, 2024 Billing Provider: BERTA MENA MD Common Visit Codes: [id number] INP/OBS CARE(MOD) BERTA MENA MD Jan 15, 2024 16:06
[2024-01-15] MEDS: PIPERACILLIN-TAZOB 3.375GM 100 ML IV SCH (17:23)
[2024-01-15] MEDS: ACETAMINOPHEN 325 MG TAB PO PRN (20:46)
[2024-01-16] VITALS (7 sets, daily range): BP systolic 106–115; BP diastolic 53–71; PULSE 18–88; RESP 18–19; TEMP 98.9–100.4; O2SAT 96–98
[2024-01-16 06:58] LABS: Alanine Aminotransferase 30 U/L (7-40); Albumin 4.3 g/dL (3.2-4.8); Alkaline Phosphatase 69 U/L (46-116); Anion Gap 6 (5-15); Aspartate Aminotransferase 32 U/L (13-40); BUN/Creatinine Ratio 6.3 (10.0-20.0); Blood Urea Nitrogen 6 mg/dL (9-23); Calcium 8.9 mg/dL (8.7-10.4); Carbon Dioxide 28 mmol/L (20-31); Chloride 103 mmol/L (98-107); Glucose 145 mg/dL (74-106); Potassium 4.4 mmol/L (3.5-5.1); Sodium 137 mmol/L (136-145)
[2024-01-16 06:59] LABS: Bilirubin, Total 0.9 mg/dL (0.2-1.0); Total Protein 6.8 g/dL (5.7-8.2)
[2024-01-16 07:02] LABS: Basophils # (auto) 0 10 ^3/uL (0-0.2); Basophils % (auto) 0.1 % (0.0-2.0); Eosinophils # (auto) 0 10 ^3/uL (0-0.8); Hematocrit 45.6 % (41.0-53.0); Hemoglobin 15.7 g/dL (13.5-17.5); Lymphocytes # (auto) 1.4 10 ^3/uL (0.4-5.4); Lymphocytes % (auto) 18.5 % (10.0-50.0); Mean Corpuscular Hgb Conc. 34.4 g/dL (32.0-36.0); Mean Corpuscular Volume 93.2 fL (80.0-100.0); Monocytes % (auto) 12.5 % (0.0-12.0); Neutrophils # (auto) 5.4 10 ^3/uL (1.6-8.6); Neutrophils % (auto) 68.9 % (37.0-80.0); Nucleated Red Blood Cells % 0.2 %; Platelet Count (auto) 118 10^3/uL (140-450); Red Blood Cells 4.89 10^6/uL (4.5-5.90); Red Cell Distribution Width 13.2 % (11.8-14.3); White Blood Cell 7.8 10^3/uL (4.4-10.8)
[2024-01-16] MEDS: IOHEXOL 350 MG/ML 100ML IJ ONE (07:55)
--- NOTE | 2024-01-16 08:48 | DVHINCON2 ---
Date of service: Jan 16, [address] Guerrero Reason for Consultation TIA/CVA History of Present Illness Mr. Jean is a right-handed gentleman with a history of diabetes, the patient was came to the [facility] [place] on 01/13/2024 with a chief company of left-sided numbness, at this time, he is alert and fully oriented, he provided the following history On 01/13/2024, he developed numbness in the left shoulder, extremities, torso, but not in the face, there was no associated weakness, headache, chest pain, or vision changes, the patient was massage himself and the symptoms resolved in 1 hour. He has never had similar problem before, he denies a history of stroke, seizure He does not snore Tele stroke consultation, 01/13/2024: NIHSS: 0 Urinalysis, 01/13/2024: Unremarkable CBC, 01/16/2024: Unremarkable CMP, 01/16/2024: Remarkable HGB A1c, 01/13/2024: 7.1 TG/HDL/LDL/HDL, 01/15/2024: 80/155/102/44 CT head, 01/13/2024: No CT evidence of acute intracranial abnormality. If there is clinical concern for acute ischemia, MRI is recommended for further evaluation CTA head, 01/14/2024: No evidence of hemodynamically significant intracranial stenosis, proximal occlusion or aneurysm. MRI head, 01/15/2024: No acute infarct, intracranial hemorrhage, mass effect, or hydrocephalus. Past Medical History Diabetes Past Surgical History None Family History: FHx: lung cancer G8 FATHER, Family History Cancer Social History He smoked remotely. No history of drug or alcohol abuse Allergies: Coded Allergies: NO KNOWN ALLERGIES (Unverified , 09/12/20) Home Meds Active Scripts Calamine-Zinc Oxide (Calamine 8-8 %) 1 Radha Radha, 1 RADHA EX QID for 10 Days, #1 BOTTLE 0 Refills Prov:ARYA PENDLETON [employer]PAIR 01/30/23 Hydroxyzine Hcl (Hydroxyzine Hcl) 25 Mg Tab, 1 TAB PO BIDP PRN for 14 Days, #28 TAB 0 Refills Prov:ARYA PENDLETON NP 01/30/23 Reported Medications Metformin Hydrochloride (Metformin Hcl) 850 Mg Tab, 1 TAB PO 01/13/24 Semaglutide (Ozempic) 4 Mg/3 Ml Inj, 1 MG SC QWEEKLY 01/13/24 Current Medications Current Medications Medications (Trade) Dose Ordered Sig/Gonzalez Route PRN Reason Start Time Stop Time Status Last Admin Aspirin 81 mg DAILY PO 01/15/24 10:00 01/15/24 08:10 Acetaminophen (Tylenol Tablet) 650 mg Q6HP PRN PO PAIN SCALE 1-3 OR TEMP>100.4 01/15/24 13:45 01/15/24 20:46 Piperacillin Sod/ Tazobactam Sod 100 ml @ 25 mls/hr Q8H IV 01/15/24 18:00 01/16/24 02:33 Review of Systems As above, the other systems are negative Vital Signs Vital Signs Date Time Temp Pulse Resp B/P (MAP) Pulse Ox O2 Delivery O2 Flow Rate FiO2 01/16/24 05:00 99.5 88 18 107/53 (71) 98 99.5 01/15/24 20:00 Room Air* 0 21 Physical Exam GENERAL EXAM: General: the patient is well developed and nourished. No acute distress. HEENT: Normocephalic, neck is supple, no carotid bruits. No mass. RESPIRATORY: Normal respiratory effort with symmetrical lung expansion. Lungs clear to auscultation. CARDIOVASCULAR: Regular rate and rhythm with no murmurs. S1, S2. ABDOMEN: Soft, nontender, normal bowel sound NEUROLOGICAL: MENTAL STATUS: Awake and alert. Oriented to person, place, time and general circumstances. Able to give personal history. SPEECH, LANGUAGE, HIGHER CORTICAL FUNCTION: no aphasia or dysathria. CRANIAL NERVES: #2: Intact visual rodriguez to confrontation. The optic discs were sharp #3,4,6: Pupils are equal, round and reactive. EOMs full and conjugate. No nystagmus. #5: Facial sensation intact in all three divisions bilaterally. Mandibular strength intact. #7: Facial muscles symmetrical and strength intact. #8: Hearing grossly normal to voice. #9,10: Uvula and soft palate rise in the midline. Swallow and voice are normal. #11: Trapezius and sternomastoid strength intact bilaterally. #12: Tongue midline. No fasciculations or atrophy. SENSATION: Sensation to touch and pinprick is normal. MOTOR: Normal tone in the upper and lower extremity. Normal muscle bulk. No fasciculations. No abnormal movements or posturing. Muscle strength of the major groups in the upper extremities is 5/5. Muscle strength of the major groups in the lower extremities is 5/5. REFLEXES: Deep tendon reflexes normal and symmetrical. No pathological reflexes. CEREBELLAR/COORDINATION: Finger to nose is normal bilaterally. GAIT/STATION: deferred. Labs/Diagnostic Data Labs Test 01/16/24 06:10 01/16/24 05:55 01/15/24 06:00 01/13/24 12:48 Range/Units White Blood Count 7.8 # 4.4-10.8 10^3/uL Red Blood Count 4.89 4.5-5.90 10^6/uL Hemoglobin 15.7 13.5-17.5 g/dL Hematocrit 45.6 41.0-53.0 % Mean Corpuscular Volume 93.2 80.0-100.0 fL Mean Corpuscular Hemoglobin 32.0 28.0-32.0 pg Mean Corpuscular Hemoglobin Concent 34.4 32.0-36.0 g/dL Red Cell Distribution Width 13.2 11.8-14.3 % Platelet Count 118 L 140-450 10^3/uL Mean Platelet Volume 7.2 6.9-10.8 fL Neutrophils (%) (Auto) 68.9 37.0-80.0 % Lymphocytes (%) (Auto) 18.5 10.0-50.0 % Monocytes (%) (Auto) 12.5 H 0.0-12.0 % Eosinophils (%) (Auto) 0.0 0.0-7.0 % Basophils (%) (Auto) 0.1 0.0-2.0 % Neutrophils # (Auto) 5.4 1.6-8.6 10 ^3/uL Lymphocytes # (Auto) 1.4 0.4-5.4 10 ^3/uL Monocytes # (Auto) 1.0 0-1.3 10 ^3/uL Eosinophils # (Auto) 0 0-0.8 10 ^3/uL Basophils # (Auto) 0 0-0.2 10 ^3/uL Nucleated Red Blood Cells 0.2 % Sodium Level 137 136-145 mmol/L Potassium Level 4.4 3.5-5.1 mmol/L Chloride Level 103 98-107 mmol/L Carbon Dioxide Level 28 20-31 mmol/L Anion Gap 6 5-15 Blood Urea Nitrogen 6 L 9-23 mg/dL Creatinine 0.96 0.700-1.30 mg/dL Glomerular Filtration Rate Calc 91 >90 mL/min BUN/Creatinine Ratio 6.3 L 10.0-20.0 Serum Glucose 145 H 74-106 mg/dL Calcium Level 8.9 8.7-10.4 mg/dL Total Bilirubin 0.9 0.2-1.0 mg/dL Aspartate Amino Transferase (AST) 32 13-40 U/L Alanine Aminotransferase (ALT) 30 7-40 U/L Alkaline Phosphatase 69 46-116 U/L Total Protein 6.8 5.7-8.2 g/dL Albumin 4.3 3.2-4.8 g/dL POC Glucose 146 H 70-106 mg/dl Triglycerides Level 80 < 150 mg/dL Cholesterol Level 155 < 200 mg/dL LDL Cholesterol 102 H < 100 mg/dL HDL Cholesterol 44 40-59 mg/dL SARS-CoV-2 Antigen (Rapid) Negative NEGATIVE Test 01/13/24 12:47 01/13/24 12:25 01/13/24 11:30 Range/Units Urine Color Light-yellow Yellow Urine Clarity Clear Clear Urine pH 6.5 5.0-9.0 Urine Specific [place] 1.017 1.001-1.035 Urine Protein Negative Negative Urine Ketones 1+ H Negative Urine Blood Negative Negative /uL Urine Nitrite Negative Negative Urine Bilirubin Negative Negative Urine Urobilinogen Normal Negative mg/dL Urine Leukocyte Esterase Negative Negative /uL Urine RBC <1 0 - 3 /hpf Urine WBC <1 0 - 3 /hpf Urine Squamous Epithelial Cells None seen <5 /hpf Urine Bacteria None seen None Seen /hpf Urine Mucus Few None Seen Urine Glucose Normal Normal mg/dL Troponin I High Sensitivity < 3 L </=54 ng/L Hemoglobin A1c 7.1 H <5.7 % A1C Microbiology Date/Time Source Procedure Growth Status 01/14/24 14:02 Blood Blood Culture - Preliminary NO GROWTH AFTER 24 HOURS OF INCUBATION. Resulted Assessment Left-sided paresthesia, unremarkable MRI ? TIA ? Partial simple seizure Plan/Recommendation Monitoring Supportive treatment UDS EEG Echocardiogram Aspirin 81 mg daily Lipitor 40 mg daily Stroke risk factors discussed with him More recommendation per clinical course This medical document was created using an electronic medical record system with Dragon computerized dictation system. Although this document has been carefully reviewed, there may still be some phonetic and typographical errors. These areas are purely typographical due to imperfections of the software programs, and do not reflect any compromise in the patient's medical care. Plan discussed with: Patient, Other CRAIG CAMARGO MD Jan 16, 2024 08:48
--- NOTE | 2024-01-16 16:47 | DVHSR ---
APPROVED REPORT EXAM: Two-dimensional and M-mode echocardiogram with Doppler and color Doppler. Blood Pressure: 108/59 mmHg INDICATION TIA RISK FACTORS Height: 63, Weight: 141 DIMENSIONS LVDd (3.8-5.7cm)LA (2D)3.4 (1.9-4.0cm)Aortic Root3.6 (2.0-3.7cm) LVDs (2.5-4.0cm)LA (MM) (1.9-4.0cm)Aortic Cusp Exc2.0 (1.5-2.0cm) EF (%) 66.0 (55-70%)Rt. Atrium4.2 (1.9-4.0cm)Asc. Aorta2.9 cm Mitral Valve MitralMitral Stenosis E wave0.70m/sMV Mean GR.mmHg A wave0.64m/sMV Peak GR.mmHg E/A ratio1.12D MVAcm2 DECEL [id number] 1/2 [id number] IVRTmsDop MVA3.27cm2 Aortic Valve Aortic ValveAortic Stenosis V11.28m/Fausto Mean GR.5mmHg V21.50m/Fausto Peak GR.9mmHg LVOT Diameter2.1 (1.8-2.4cm)Doppler AVA2.95cm2 Pulmonic Valve V20.87m/s Other Information Technically limited study due to body habitus. Conclusion Normal left ventricular size and dimension. Normal left ventricular systolic function estimated ejec tion fraction 55%. There is a grade 1 diastolic dysfunction. Normal right ventricular size and dimension. Normal right ventricular systolic function. There is mild biatrial enlargement. There is mild aortic valve sclerosis. Normal mitral valve structure function. Normal tricuspid valve structure and function. The pulmonary valve is grossly normal. No pericardial effusion.
--- NOTE | 2024-01-16 17:53 | DVHPN2 ---
Subjective Patient is clinically stable except that he had a fever up to 101 today. Patient denies any cough or congestion. Urinalysis does not show any evidence of infection. Changes from previous H/P or p: No Changes Eyes: No Pain, No Vision change, No Conjunctivae inflammation, No Eyelid inflammation, No Other, No Redness ENT: No Ear pain, No Ear discharge, No Nose pain, No Nose discharge, No Nose congestion, No Mouth pain, No Mouth swelling, No Throat pain, No Throat swelling, No Other Cardiovascular: No Chest Pain, No Palpitations, No Orthopnea, No Paroxysmal Noc. Dyspnea, No Edema, No Lt Headedness, No Other Respiratory: No Cough, No Dry, No Shortness of breath, No SOB with excertion, No Wheezing, No Hemoptysis, No Pleuritic Pain, No Sputum, No Other Gastrointestinal: No Nausea, No Vomiting, No Abdominal Pain, No Diarrhea, No Constipation, No Melena, No Hematochezia, No Other Genitourinary: No Dysuria, No Frequency, No Incontinence, No Hematuria, No Retention, No Other Musculoskeletal: No other, No neck pain, No shoulder pain, No arm pain, No back pain, No hand pain, No leg pain, No foot pain Skin: No Rash, No Lesions, No Jaundice, No Bruising, No Other Objective Vitals Vital Signs Date Time Temp Pulse Resp B/P (MAP) Pulse Ox O2 Delivery O2 Flow Rate FiO2 01/16/24 17:29 98.9 78 18 112/65 (81) 98 98.9 01/16/24 08:00 Room Air* 0 21 Intake/Output Intake and Output 01/16/24 07:00 Intake Total 1300 ml Output Total 500 ml Balance 800 ml Intake Oral 1300 ml Output Urine Total 500 ml # Voids 4 # Bowel Movements 1 Exam Comfortable in bed. Able to swallow without problems. Alert awake oriented x3. HEENT neck supple no JVD. Heart regular rate and rhythm S1 and S2. Lungs without rales wheezes. Abdomen soft nontender positive bowel sounds. Extremities no edema positive pulses Medications Current Medications Medications Dose Ordered Sig/Gonzalez Route Start Time Stop Time Status Last Admin Dose Admin Acetaminophen/ Hydrocodone Bitart 1 tab Q4HP PRN PO 01/13/24 17:45 01/15/24 08:10 1 TAB Ondansetron HCl 4 mg Q4HP PRN IV 01/13/24 17:45 Guaifenesin/ Dextromethorphan 10 ml Q4HP PRN PO 01/13/24 17:45 01/13/24 23:11 10 ML Diagnostic Test (Pha) 1 strip ACHS 01/13/24 22:00 01/16/24 17:32 1 STRIP Insulin Human Regular HS SC 01/13/24 22:00 01/15/24 22:02 6 UNITS Insulin Human Regular AC SC 01/14/24 07:00 01/16/24 12:12 3 UNITS Dextrose 50 ml UD PRN IV 01/13/24 18:00 Aspirin 81 mg DAILY PO 01/15/24 10:00 01/16/24 09:39 81 MG Atorvastatin Calcium 40 mg HS PO 01/14/24 22:00 01/15/24 22:01 40 MG Sodium Chloride 1,000 ml @ 75 mls/hr [id number] IV 01/14/24 16:30 01/14/24 19:54 75 MLS/HR Acetaminophen 650 mg Q6HP PRN PO 01/15/24 13:45 01/15/24 20:46 650 MG Piperacillin Sod/ Tazobactam Sod 100 ml @ 25 mls/hr Q8H IV 01/15/24 18:00 01/16/24 17:33 25 MLS/HR Laboratory Results Laboratory Tests 01/16/24 06:10 Chemistry Test 01/16/24 06:10 Albumin 4.3 g/dL (3.2-4.8) Calcium Level 8.9 mg/dL (8.7-10.4) Total Protein 6.8 g/dL (5.7-8.2) LFT Test 01/16/24 06:10 Alanine Aminotransferase (ALT) 30 U/L (7-40) Alkaline Phosphatase 69 U/L (46-116) Aspartate Amino Transferase (AST) 32 U/L (13-40) Total Bilirubin 0.9 mg/dL (0.2-1.0) Urinalysis Test 01/13/24 12:47 Urine Color Light-yellow (Yellow) Urine Clarity Clear (Clear) Urine pH 6.5 (5.0-9.0) Urine Specific [place] 1.017 (1.001-1.035) Urine Protein Negative (Negative) Urine Ketones 1+ (Negative) H Urine Blood Negative /uL (Negative) Urine Nitrite Negative (Negative) Urine Bilirubin Negative (Negative) Urine Urobilinogen Normal mg/dL (Negative) Urine Leukocyte Esterase Negative /uL (Negative) Urine RBC <1 /hpf (0 - 3) Urine WBC <1 /hpf (0 - 3) Urine Squamous Epithelial Cells None seen /hpf (<5) Urine Bacteria None seen /hpf (None Seen) Urine Mucus Few (None Seen) Urine Glucose Normal mg/dL (Normal) Microbiology Microbiology Date/Time Source Procedure Growth Status 01/15/24 03:30 Sputum Gram Stain - Final Resulted 01/15/24 03:30 Sputum Respiratory Culture - Preliminary Resulted 01/14/24 14:02 Blood Blood Culture - Preliminary NO GROWTH AFTER 48 HOURS OF INCUBATION. Resulted Labs and/or images reviewed: Labs reviewed by me Assessment/Plan Assessment/Plan We will follow up blood cultures and for his elevated fever. I will order a chest x-ray. Start him on empiric antibiotics. Follow the labs. His neurological workup for TIA/stroke so far been normal. Continue activity ambulation. Otherwise follow clinical management per clinical course and pending evaluations and studies. Discussed with the nurse regarding care plan Plan discussed with: Patient, Other My Orders Orders - BERTA MENA MD Procedure Category Date Status Time * Infectious Alicia- Dr. TOBAR 01/16/24 Transmitted Mallad 14:20 Date of Service: Jan 16, 2024 Billing Provider: BERTA MENA MD Common Visit Codes: [id number] INP/OBS CARE(LOW) BERTA MENA MD Jan 16, 2024 17:53
[2024-01-17 01:00] VITALS: BP 101/76; PULSE 82; RESP 18; TEMP 98; O2SAT 96
[2024-01-17 05:00] VITALS: BP 106/58; PULSE 82; RESP 18; TEMP 98.5; O2SAT 95
--- NOTE | 2024-01-17 07:18 | DVHINCON2 ---
Date of service: Jan 17, 2024 Reason for Consultation Left-sided numbness. History of Present Illness Patient is a 58-year-old male presents to the hospital with chief complaint of left-sided numbness. Upon presentation, patient was alert and oriented. Patient reports some tingling sensation to the left foot, nausea and sore throat. He massaged himself and symptoms resolved in 1 hour. He denies any slurred speech, vision changes, chest pain, facial drooping, shortness of breath, fever or chills. Currently patient does not have any numbness, once patient was in ER bed he no longer had the numbness. He never had similar problem before, he denies any history of stroke or seizure. He does not snore. Patient was admitted for further evaluation medical management. Respiratory culture: 01/13: Normal Oropharyngeal [place] Blood culture: 01/12: Revealed no growth. Antibiotics status: Azithromycin 500 mg IV Piperacillin Sodium IV 100ml@25mls/hr. Urinalysis, 01/13/2024: Unremarkable CBC, 01/16/2024: Unremarkable CMP, 01/16/2024: Remarkable HGB A1c, 01/13/2024: 7.1 TG/HDL/LDL/HDL, 01/15/2024: 80/155/102/44 CT head, 01/13/2024: No CT evidence of acute intracranial abnormality. If there is clinical concern for acute ischemia, MRI is recommended for further evaluation CT head, 01/14/2024: No evidence of hemodynamically significant intracranial stenosis, proximal occlusion or aneurysm. MRI head, 01/15/2024: No acute infarct, intracranial hemorrhage, mass effect, or hydrocephalus. Past Medical History Patient's past medical history is significant for Diabetes mellitus type II. Past Surgical History Denies Family History: FHx: lung cancer G8 FATHER, Social History Smoke: No ALCOHOL: none Drugs: None Lives: with Family Allergies: Coded Allergies: NO KNOWN ALLERGIES (Unverified , 09/12/20) Home Meds Active Scripts Cefdinir (Cefdinir) 300 Mg Cap, 1 CAP PO BID, #10 CAP Prov:BERTA MENA MD 01/17/24 Azithromycin (Azithromycin) 250 Mg Tab, 500 MG PO DAILY, #10 TAB take 2 tablets daily Prov:BERTA MENA MD 01/17/24 Atorvastatin Calcium (ATORVASTATIN CALCIUM) 20 Mg Tab, 40 MG PO HS, #60 TAB Prov:BERTA MENA MD 01/17/24 Aspirin (Aspirin Low Dose) 81 Mg Tab, 81 MG PO DAILY, #60 TAB Prov:BERTA MENA MD 01/17/24 Calamine-Zinc Oxide (Calamine 8-8 %) 1 Radha Radha, 1 RADHA EX QID for 10 Days, #1 BOTTLE 0 Refills Prov:ARYA PENDLETON MECHANICAL DRAFTER 01/30/23 Hydroxyzine Hcl (Hydroxyzine Hcl) 25 Mg Tab, 1 TAB PO BIDP PRN for 14 Days, #28 TAB 0 Refills Prov:ARYA PENDLETON MECHANICAL DRAFTER 01/30/23 Reported Medications Metformin Hydrochloride (Metformin Hcl) 850 Mg Tab, 1 TAB PO 01/13/24 Semaglutide (Ozempic) 4 Mg/3 Ml Inj, 1 MG SC QWEEKLY 01/13/24 Review of Systems Constitutional: No: Fever, Chills, Sweats, Weakness, Malaise, Other Eyes: No: Pain, Vision change, Conjunctivae inflammation, Eyelid inflammation, Other, Redness ENT: No: Ear pain, Ear discharge, Nose pain, Nose discharge, Nose congestion, Mouth pain, Mouth swelling, Throat pain, Throat swelling, Other Respiratory: No: Cough, Dry, Shortness of breath, SOB with excertion, Wheezing, Hemoptysis, Pleuritic Pain, Sputum, Wheezing, Other Cardiovascular: No: Chest Pain, Palpitations, Orthopnea, Paroxysmal Noc. D yspnea, Edema, Lt Headedness, Other Gastrointestinal: No: Nausea, Vomiting, Abdominal Pain, Diarrhea, Constipation, Melena, Hematochezia. Genitourinary: No Dysuria, No Frequency, No Incontinence, No Hematuria, No Retention, No Other Musculoskeletal: No: other, neck pain, shoulder pain, arm pain, back pain, hand pain, leg pain, foot pain Skin: No: Rash, Lesions, Jaundice, Bruising, Other Neurological: No: Weakness, numbness, Incoordination, Change in speech, Confusion, Seizures, facial drooping. Vital Signs Vital Signs Date Time Temp Pulse Resp B/P (MAP) Pulse Ox O2 Delivery O2 Flow Rate FiO2 01/17/24 05:00 98.5 82 18 106/58 (74) 95 98.5 01/16/24 20:00 Room Air* 0 21 Physical Exam General Appearance: Alert, Oriented X3, Cooperative, No acute distress HEENT: Atraumatic, PERRLA, EOMI, Mucous membr. moist/pink Respiratory: Clear to auscultation, Normal air movement Cardiovascular: Regular rate, Normal S1, Normal S2, No murmurs Abdominal: Normal bowel sounds, Soft, No tenderness, No hepatospenomegaly, No masses Extremities: No clubbing, No cyanosis, No edema, Normal pulses, No tenderness/swelling Skin: No rashes, No breakdown, No significant lesion Neuro: Normal gait, Normal speech, Strength at 5/5 X4 ext, Normal tone, Sensation intact, Cranial nerves 3-12 NL, Reflexes 2+ Psych/Mental Status: Mental status NL, Mood NL Labs/Diagnostic Data Labs Test 01/17/24 05:04 01/16/24 06:10 01/15/24 06:00 01/13/24 12:48 Range/Units POC Glucose 129 H 70-106 mg/dl White Blood Count 7.8 # 4.4-10.8 10^3/uL Red Blood Count 4.89 4.5-5.90 10^6/uL Hemoglobin 15.7 13.5-17.5 g/dL Hematocrit 45.6 41.0-53.0 % Mean Corpuscular Volume 93.2 80.0-100.0 fL Mean Corpuscular Hemoglobin 32.0 28.0-32.0 pg Mean Corpuscular Hemoglobin Concent 34.4 32.0-36.0 g/dL Red Cell Distribution Width 13.2 11.8-14.3 % Platelet Count 118 L 140-450 10^3/uL Mean Platelet Volume 7.2 6.9-10.8 fL Neutrophils (%) (Auto) 68.9 37.0-80.0 % Lymphocytes (%) (Auto) 18.5 10.0-50.0 % Monocytes (%) (Auto) 12.5 H 0.0-12.0 % Eosinophils (%) (Auto) 0.0 0.0-7.0 % Basophils (%) (Auto) 0.1 0.0-2.0 % Neutrophils # (Auto) 5.4 1.6-8.6 10 ^3/uL Lymphocytes # (Auto) 1.4 0.4-5.4 10 ^3/uL Monocytes # (Auto) 1.0 0-1.3 10 ^3/uL Eosinophils # (Auto) 0 0-0.8 10 ^3/uL Basophils # (Auto) 0 0-0.2 10 ^3/uL Nucleated Red Blood Cells 0.2 % Sodium Level 137 136-145 mmol/L Potassium Level 4.4 3.5-5.1 mmol/L Chloride Level 103 98-107 mmol/L Carbon Dioxide Level 28 20-31 mmol/L Anion Gap 6 5-15 Blood Urea Nitrogen 6 L 9-23 mg/dL Creatinine 0.96 0.700-1.30 mg/dL Glomerular Filtration Rate Calc 91 >90 mL/min BUN/Creatinine Ratio 6.3 L 10.0-20.0 Serum Glucose 145 H 74-106 mg/dL Calcium Level 8.9 8.7-10.4 mg/dL Total Bilirubin 0.9 0.2-1.0 mg/dL Aspartate Amino Transferase (AST) 32 13-40 U/L Alanine Aminotransferase (ALT) 30 7-40 U/L Alkaline Phosphatase 69 46-116 U/L Total Protein 6.8 5.7-8.2 g/dL Albumin 4.3 3.2-4.8 g/dL Triglycerides Level 80 < 150 mg/dL Cholesterol Level 155 < 200 mg/dL LDL Cholesterol 102 H < 100 mg/dL HDL Cholesterol 44 40-59 mg/dL SARS-CoV-2 Antigen (Rapid) Negative NEGATIVE Test 01/13/24 12:47 01/13/24 12:25 01/13/24 11:30 Range/Units Urine Color Light-yellow Yellow Urine Clarity Clear Clear Urine pH 6.5 5.0-9.0 Urine Specific [place] 1.017 1.001-1.035 Urine Protein Negative Negative Urine Ketones 1+ H Negative Urine Blood Negative Negative /uL Urine Nitrite Negative Negative Urine Bilirubin Negative Negative Urine Urobilinogen Normal Negative mg/dL Urine Leukocyte Esterase Negative Negative /uL Urine RBC <1 0 - 3 /hpf Urine WBC <1 0 - 3 /hpf Urine Squamous Epithelial Cells None seen <5 /hpf Urine Bacteria None seen None Seen /hpf Urine Mucus Few None Seen Urine Glucose Normal Normal mg/dL Troponin I High Sensitivity < 3 L </=54 ng/L Hemoglobin A1c 7.1 H <5.7 % A1C Microbiology Date/Time Source Procedure Growth Status 01/15/24 03:30 Sputum Gram Stain - Final Resulted 01/15/24 03:30 Sputum Respiratory Culture - Preliminary Resulted 01/14/24 14:02 Blood Blood Culture - Preliminary NO GROWTH AFTER 48 HOURS OF INCUBATION. Resulted Assessment Patient is a 58-year-old male presented with Left-sided numbness Fever Pneumonia Recommendations --Nasal MRSA screen --Flu panel --Legionella ab --Add Azithromycin, added. --Continue Zosyn, will follow --Sputum culture ALIYAH MARTIN MD Jan 17, 2024 07:18
[2024-01-17 07:40] VITALS: PULSE 79; RESP 18; O2SAT 95
--- NOTE | 2024-01-17 08:39 | DVHPN2 ---
Progress Note - Dictate Date Seen: Jan 17, 2024 Medical Necessity Reason Pt with a Central, PICC or Fol: No Subjective Mr. Jean is a right-handed gentleman with a history of diabetes, the patient was came to the [facility] on 01/13/2024 with a chief company of left-sided numbness Urinalysis, 01/13/2024: Unremarkable CBC, 01/16/2024: Unremarkable CMP, 01/16/2024: Remarkable HGB A1c, 01/13/2024: 7.1 TG/HDL/LDL/HDL, 01/15/2024: 80/155/102/44 Echocardiogram, 01/16/2024: Normal left ventricular size and dimension. Normal left ventricular systolic function estimated ejection fraction 55%. There is a grade 1 diastolic dysfunction. Normal right ventricular size and dimension. Normal right ventricular systolic function. There is mild biatrial enlargement. There is mild aortic valve sclerosis. Normal mitral valve structure function. Normal tricuspid valve structure and function. The pulmonary valve is grossly normal. No pericardial effusion. CT head, 01/13/2024: No CT evidence of acute intracranial abnormality. If there is clinical concern for acute ischemia, MRI is recommended for further evaluation CTA head, 01/14/2024: No evidence of hemodynamically significant intracranial stenosis, proximal occlusion or aneurysm. MRI head, 01/15/2024: No acute infarct, intracranial hemorrhage, mass effect, or hydrocephalus. vital signs Vital Sign Date Time Temp Pulse Resp B/P (MAP) Pulse Ox O2 Delivery O2 Flow Rate FiO2 01/17/24 05:00 98.5 82 18 106/58 (74) 95 98.5 01/16/24 20:00 Room Air* 0 21 Total Intake and Output 01/16/24 01/16/24 01/17/24 15:00 23:00 07:00 Intake Total 950 ml 900 ml Output Total 600 ml 830 ml Balance 350 ml 70 ml medications Current Medications Medications Dose Ordered Sig/Gonzalez Route Start Time Stop Time Status Last Admin Dose Admin Acetaminophen/ Hydrocodone Bitart 1 tab Q4HP PRN PO 01/13/24 17:45 01/15/24 08:10 1 TAB Ondansetron HCl 4 mg Q4HP PRN IV 01/13/24 17:45 Guaifenesin/ Dextromethorphan 10 ml Q4HP PRN PO 01/13/24 17:45 01/13/24 23:11 10 ML Diagnostic Test (Pha) 1 strip ACHS 01/13/24 22:00 01/17/24 05:56 1 STRIP Insulin Human Regular HS SC 01/13/24 22:00 01/16/24 20:07 3 UNITS Insulin Human Regular AC SC 01/14/24 07:00 01/16/24 12:12 3 UNITS Dextrose 50 ml UD PRN IV 01/13/24 18:00 Aspirin 81 mg DAILY PO 01/15/24 10:00 01/16/24 09:39 81 MG Atorvastatin Calcium 40 mg HS PO 01/14/24 22:00 01/16/24 20:13 40 MG Sodium Chloride 1,000 ml @ 75 mls/hr [id number] IV 01/14/24 16:30 01/14/24 19:54 75 MLS/HR Acetaminophen 650 mg Q6HP PRN PO 01/15/24 13:45 01/15/24 20:46 650 MG Piperacillin Sod/ Tazobactam Sod 100 ml @ 25 mls/hr Q8H IV 01/15/24 18:00 01/17/24 01:34 25 MLS/HR Azithromycin 500 mg DAILY PO 01/17/24 10:00 UNV objective General: the patient is well developed and nourished. No acute distress. MENTAL STATUS: Awake and alert. Oriented to person, place, time and general circumstances. Able to give personal history. SPEECH, LANGUAGE, HIGHER CORTICAL FUNCTION: no aphasia or dysathria. CRANIAL NERVES: Pupils are equal, round and reactive. EOMs full and conjugate. No nystagmus. Facial sensation intact in all three divisions bilaterally. Mandibular strength intact. Facial muscles symmetrical and strength intact. SENSATION: Sensation to touch and pinprick is normal. MOTOR: Normal tone in the upper and lower extremity. Normal muscle bulk. No fasciculations. No abnormal movements or posturing. Muscle strength of the major groups in the extremities is 5/5. REFLEXES: Deep tendon reflexes normal and symmetrical. No pathological reflexes. CEREBELLAR/COORDINATION: Finger to nose is normal bilaterally. GAIT/STATION: deferred. laboratory and microbiology Laboratory Tests 01/16/24 06:10 Test 01/16/24 06:10 Range/Units Serum Glucose 145 H 74-106 mg/dL Problem List Left-sided paresthesia, unremarkable MRI ? TIA ? Partial simple seizure Assessment/Plan Monitoring Supportive treatment UDS EEG I recommend Aspirin 81 mg daily, Lipitor 20 mg daily for secondary stroke prevention Stroke risk factors discussed with him More recommendation per clinical course This medical document was created using an electronic medical record system with [employer] dictation system. Although this document has been carefully reviewed, there may still be some phonetic and typographical errors. These areas are purely typographical due to imperfections of the software programs, and do not reflect any compromise in the patient's medical care. Prognosis poor Plan discussed with: Patient, Other CRAIG CAMARGO MD Jan 17, 2024 08:39
[2024-01-17 09:00] VITALS: BP 107/58; PULSE 79; RESP 18; TEMP 98.9; O2SAT 95
[2024-01-17] MEDS: AZITHROMYCIN 250 MG TAB PO SCH (10:05)
[2024-01-17] MEDS ORDERED: CEFD300C2 PO (10:26)
[2024-01-17] MEDS ORDERED: ATOR20TA50 PO (10:26)
[2024-01-17] MEDS ORDERED: ASPI-325 PO (10:26)
[2024-01-17] MEDS ORDERED: AZIT-43 PO (10:26)
--- NOTE | 2024-01-17 10:28 | DVHDS2 ---
Discharge Summary Date of Admission Jan 13, 2024 at 17:43 Date of Discharge: Jan 17, 2024 Labs/Diagnostic Data: Laboratory Results Test 01/17/24 09:34 01/17/24 05:04 01/16/24 06:10 01/15/24 06:00 POC Glucose 129 mg/dl (70-106) White Blood Count 7.8 10^3/uL (4.4-10.8) Red Blood Count 4.89 10^6/uL (4.5-5.90) Hemoglobin 15.7 g/dL (13.5-17.5) Hematocrit 45.6 % (41.0-53.0) Mean Corpuscular Volume 93.2 fL (80.0-100.0) Mean Corpuscular Hemoglobin 32.0 pg (28.0-32.0) Mean Corpuscular Hemoglobin Concent 34.4 g/dL (32.0-36.0) Red Cell Distribution Width 13.2 % (11.8-14.3) Platelet Count 118 10^3/uL (140-450) Mean Platelet Volume 7.2 fL (6.9-10.8) Neutrophils (%) (Auto) 68.9 % (37.0-80.0) Lymphocytes (%) (Auto) 18.5 % (10.0-50.0) Monocytes (%) (Auto) 12.5 % (0.0-12.0) Eosinophils (%) (Auto) 0.0 % (0.0-7.0) Basophils (%) (Auto) 0.1 % (0.0-2.0) Neutrophils # (Auto) 5.4 10 ^3/uL (1.6-8.6) Lymphocytes # (Auto) 1.4 10 ^3/uL (0.4-5.4) Monocytes # (Auto) 1.0 10 ^3/uL (0-1.3) Eosinophils # (Auto) 0 10 ^3/uL (0-0.8) Basophils # (Auto) 0 10 ^3/uL (0-0.2) Nucleated Red Blood Cells 0.2 % Sodium Level 137 mmol/L (136-145) Potassium Level 4.4 mmol/L (3.5-5.1) Chloride Level 103 mmol/L (98-107) Carbon Dioxide Level 28 mmol/L (20-31) Anion Gap 6 (5-15) Blood Urea Nitrogen 6 mg/dL (9-23) Creatinine 0.96 mg/dL (0.700-1.30) Glomerular Filtration Rate Calc 91 mL/min (>90) BUN/Creatinine Ratio 6.3 (10.0-20.0) Serum Glucose 145 mg/dL (74-106) Calcium Level 8.9 mg/dL (8.7-10.4) Total Bilirubin 0.9 mg/dL (0.2-1.0) Aspartate Amino Transferase (AST) 32 U/L (13-40) Alanine Aminotransferase (ALT) 30 U/L (7-40) Alkaline Phosphatase 69 U/L (46-116) Total Protein 6.8 g/dL (5.7-8.2) Albumin 4.3 g/dL (3.2-4.8) Triglycerides Level 80 mg/dL (< 150) Cholesterol Level 155 mg/dL (< 200) LDL Cholesterol 102 mg/dL (< 100) HDL Cholesterol 44 mg/dL (40-59) Test 01/13/24 12:48 01/13/24 12:47 01/13/24 12:25 01/13/24 11:30 SARS-CoV-2 Antigen (Rapid) Negative (NEGATIVE) Urine Color Light-yellow (Yellow) Urine Clarity Clear (Clear) Urine pH 6.5 (5.0-9.0) Urine Specific [place] 1.017 (1.001-1.035) Urine Protein Negative (Negative) Urine Ketones 1+ (Negative) Urine Blood Negative /uL (Negative) Urine Nitrite Negative (Negative) Urine Bilirubin Negative (Negative) Urine Urobilinogen Normal mg/dL (Negative) Urine Leukocyte Esterase Negative /uL (Negative) Urine RBC <1 /hpf (0 - 3) Urine WBC <1 /hpf (0 - 3) Urine Squamous Epithelial Cells None seen /hpf (<5) Urine Bacteria None seen /hpf (None Seen) Urine Mucus Few (None Seen) Urine Glucose Normal mg/dL (Normal) Troponin I High Sensitivity < 3 ng/L (</=54) Hemoglobin A1c 7.1 % A1C (<5.7) Other Laboratory Tests 01/16/24 06:10 Brief Hx & Hospital Course: 58-year-old male presented to the ED with chief complaint of left-sided numbness, that started last night at 10:00 p.m.. Patient reports some tingling sensation to the left foot, nausea and sore throat this morning. Patient denies any slurred speech, vision changes, chest pain, facial drooping, shortness of breath, fever or chills. Currently patient does not have the numbness any longer. Once patient was in ER bed he no longer had the numbness. Patient was admitted for further evaluation medical management. He is admitted and evaluated by urologist. Patient's CT angiogram of the head and neck did not reveal any significant stenosis. MRI brain did not show any acute pathology. Patient had a fever therefore evaluated by Infectious Disease. He is cultures have been negative. Chest x-ray showed a possible lobar pneumonia. Therefore he received IV antibiotics. Patient's fevers resolved. Oxygenating normally on room air. Is numbness symptoms have also improved. Patient counseled and educated along with the his son at bedside regarding his diagnosis, investigative study results, advised to aggressively modify his risk factors including good blood sugar control for his diabetes and be compliant with the medications. Otherwise given overall patient is clinically stable having had necessary workup and evaluations feeling better it is felt he could be safely discharged home with close outpatient follow up as mentioned. Patient and family verbalized understanding of these and agree with the discharge follow-up plan of care. Consults/Reason for consult Problem List Left-sided paresthesia, unremarkable MRI ? TIA ? Partial simple seizure Assessment/Plan Monitoring Supportive treatment UDS EEG I recommend Aspirin 81 mg daily, Lipitor 20 mg daily for secondary stroke prevention Stroke risk factors discussed with him More recommendation per clinical course This medical document was created using an electronic medical record system with [employer] dictation system. Although this document has been carefully reviewed, there may still be some phonetic and typographical errors. These areas are purely typographical due to imperfections of the software programs, and do not reflect any compromise in the patient's medical care. Prognosis poor Plan discussed with: Patient, Other CRAIG CAMARGO MD Jan 17, 2024 08:39 Operations or Procedures IMPRESSION: 1. No acute infarct, intracranial hemorrhage, mass effect, or hydrocephalus. Condition at Discharge: Stable Final Diagnosis/Problems List tia, pneumonia Discharge Disposition: Home Discharge Instruct/Medications Diet: Consistent carbohydrate, Cardiac 2g Na,low cholest Activity: No Restrictions, As Tolerated Follow Up/Referral: PCP for diabetes/blood pressure 2-3 weeks. With Infectious doctor Dora 2 weeks for pneumonia Medications: as prescribed and home meds New Medications: Cefdinir (Cefdinir) 300 Mg Cap 1 CAP PO BID, #10 CAP Aspirin (Aspirin Low Dose) 81 Mg Tab 81 MG PO DAILY, #60 TAB Atorvastatin Calcium (Atorvastatin Calcium) 20 Mg Tab 40 MG PO HS, #60 TAB Azithromycin (Azithromycin) 250 Mg Tab 500 MG PO DAILY, #10 TAB take 2 tablets daily Continued Medications: Calamine-Zinc Oxide (Calamine 8-8 %) 1 Radha Radah 1 RADHA EX QID for 10 Days, #1 BOTTLE 0 Refills Metformin Hydrochloride (Metformin Hcl) 850 Mg Tab 1 TAB PO Semaglutide (Ozempic) 4 Mg/3 Ml Inj 1 MG SC QWEEKLY Discontinued Medications: Hydroxyzine Hcl (Hydroxyzine Hcl) 25 Mg Tab 1 TAB PO BIDP PRN for 14 Days, #28 TAB 0 Refills Discharge Statement: "Patient was advised to return to the ER or call 911 if any headaches, dizziness, shortness of breath, chest pain, abdominal pain, bleeding, fevers, or worsening of medical condition. Patient was counseled about treatment plan, medications, possible side effects, patientverbalized understanding. All questions were answered to the best of my ability. This discharge took greater then 30 minutes in planning, reviewing documentation, counseling the patient, and discussing with other team members." ASSESSMENT ASSESSMENT Assessment tia, pneumonia Date of Service: Jan 17, 2024 Billing Provider: BERTA MENA MD Common Visit Codes: 13026-DQF/OBS DISCH DAY <30MIN BERTA MENA MD Jan 17, 2024 10:28
--- NOTE | 2024-01-17 11:14 | ECG ---
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
[2024-01-17 11:33] VITALS: BP 107/58; PULSE 79; RESP 18; TEMP 98.9; O2SAT 95
--- NOTE | 2024-01-18 00:06 | DVHEEG2 ---
Neurology EEG Procedural Note Procedural Note EXAM DATE: 01/17/2024 REFERRING DOCTOR: Dr. Camargo TECHNIQUE: Eighteen channels of EEG, 2 channels of EOG, and 1 channel of EKG were recorded using the International 10/20 system. CLINICAL DATA: The patient was referred for an EEG evaluation for the evidence of seizure disorder. MEDICATIONS: See the chart BACKGROUND ACTIVITY: While the patient was awake, the background activity consisted of well regulated 10 Hz rhythmic waveforms, symmetrically distributed over both posterior quadrants and was reactive to eye opening. ACTIVATION: Hyperventilation: Not done Photic Stimulation: Not done Sleep: Not seen IMPRESSION: This is a normal EEG. No focal, lateralized, or epileptiform features are noted. If clinically indicated to rule out a seizure disorder, recommend repeat EEG with sleep deprivation. The EKG channel showed a regular heart rate of 78/[place] [address] CRAIG CAMARGO MD Jan 18, 2024 00:06
== END 2024-01-17 14:23 | disposition home or self-care (01) | DRG 137 ==
LOC: ER 10:05 → OVERFLOW 17:43 → EAST 18:36
PROVIDERS: ADMIT Hospitalist; ATTEND Hospitalist
DX: J15.69 Pneumonia due to other Gram-negative bacteria (principal); G45.9 Transient cerebral ischemic attack, unspecified; J15.9 Unspecified bacterial pneumonia; E11.9 Type 2 diabetes mellitus without complications; Z20.822 Contact with and (suspected) exposure to COVID-19; I10 Essential (primary) hypertension; Z79.899 Other long term (current) drug therapy; Z79.82 Long term (current) use of aspirin; Z80.1 Family history of malignant neoplasm of trachea, bronchus and lung; Z87.891 Personal history of nicotine dependence; Z79.4 Long term (current) use of insulin
CPT/HCPCS: 36415; 70450; 70496; 70551; 71045; 80048; 80053; 80061; 81001; 82962; 83036; 84484; 85025; 87040; 87070; 87081; 87205; 87278; 87426; 93005; 93306; 95819; 99291; G0378; J1815; J2543

== ENCOUNTER → 2024-07-16 | Day surgery (SDC) | payer MEDICAID ==
[2024-07-09 14:51] LABS: Urine Bacteria None Seen /hpf (None Seen)
[2024-07-09 14:53] LABS: Basophils # (auto) 0 10 ^3/uL (0-0.2); Basophils % (auto) 0.3 % (0.0-2.0); Eosinophils # (auto) 0 10 ^3/uL (0-0.8); Eosinophils % (auto) 0.3 % (0.0-7.0); Hematocrit 49.3 % (41.0-53.0); Hemoglobin 16.8 g/dL (13.5-17.5); Lymphocytes # (auto) 1.1 10 ^3/uL (0.4-5.4); Lymphocytes % (auto) 18.8 % (10.0-50.0); Mean Corpuscular Hemoglobin 31.5 pg (28.0-32.0); Mean Corpuscular Hgb Conc. 34.1 g/dL (32.0-36.0); Mean Corpuscular Volume 92.3 fL (80.0-100.0); Monocytes # (auto) 0.6 10 ^3/uL (0-1.3); Monocytes % (auto) 10.8 % (0.0-12.0); Neutrophils # (auto) 4.1 10 ^3/uL (1.6-8.6); Neutrophils % (auto) 69.8 % (37.0-80.0); Platelet Count (auto) 170 10^3/uL (140-450); Red Blood Cells 5.34 10^6/uL (4.5-5.90); Red Cell Distribution Width 13.9 % (11.8-14.3); White Blood Cell 5.8 10^3/uL (4.4-10.8)
[2024-07-09 15:05] LABS: Urine Blood Negative /uL (Negative); Urine Clarity Clear (Clear); Urine Color Colorless (Yellow); Urine Protein, UAD Negative (Negative); Urine Specific Gravity 1.007 (1.001-1.035); Urine Squamous Epithelial Cell None Seen /hpf (<5); Urine Urobilinogen Normal (Negative); Urine pH 5.5 (5.0-9.0)
[2024-07-09 15:08] LABS: INR 0.97 (0.9-1.15); Partial Thromboplastin Time 25.4 SEC (24.5-34.5); Prothrombin Time 10.3 sec (9.3-11.8)
[2024-07-09 15:25] LABS: Alkaline Phosphatase 100 U/L (46-116); Anion Gap 7 (5-15); Aspartate Aminotransferase 29 U/L (13-40); Bilirubin, Total 0.4 mg/dL (0.2-1.0); Calcium 9.9 mg/dL (8.7-10.4); Carbon Dioxide 29 mmol/L (20-31); Chloride 101 mmol/L (98-107); Sodium 137 mmol/L (136-145)
[2024-07-09 15:27] LABS: Alanine Aminotransferase 43 U/L (7-40); Blood Urea Nitrogen 9 mg/dL (9-23); Glucose 227 mg/dL (74-106)
[~2024-07-16] VITALS: Ht 162.6 cm; Wt 67.1 kg
[~2024-07-16] MED LIST changes: -CALA1SUS2 EX; +EMPA1TAB3 PO; +GLYCOPYRROLATE 0.2 MG/ML 1ML VIAL ONE; -HYDR-3682 PO; +HYDROmorphone HCL 2 MG/ML VL/or syr IV PRN; +KETAMINE 50mg/ML 1ml syringe ONE; +METF-371 PO; +MIDAZOLAM HCL 2MG/2ML 2ml VIAL (1mg/ml) ONE; +ONDANSETRON HCL 4 MG/2 ML VIAL ONE; +PROPOFOL 10 MG/ML 20 ML IV ONE; +[UNRECOGNIZED DRUG - CODE] IJ
[2024-07-16] MEDS: ceFAZolin 2 GM/D5W50ml 50 ML IV ONE (08:30)
[2024-07-16] MEDS: BUPIVACAINE HCL 0.25% P/F 10 ML VIAL ONE (08:39)
[2024-07-16] MEDS: LIDOCAINE 1% HCL (LOCAL ANESTH.) INJ 20ML MDV ONE (08:39)
[2024-07-16 08:44] VITALS: PULSE 87; RESP 11; O2SAT 98
[2024-07-16 09:45] VITALS: BP 119/78; PULSE 85; RESP 14; O2SAT 98
--- NOTE | 2024-07-18 16:54 | DVHOP2 ---
Operative Report - 2 Report Details Date: 07/16/24 Preop Diagnosis: Right middle trigger finger Postop Diagnosis: As above Surgeon: Frandy Yoon MD/ Juan DAVIS Field Ironworker: Darien THOMPSON Anesthesiologist: Anesthesia: Mac, Local Consent: The patient was informed of the risks and benefits of the procedure. These inc lude but are not limited to complications of anesthesia, postoperative infection, incomplete relief of symptoms, recurrence of symptoms, damage to blood vessels, nerves and tendons, deep venous thrombosis, pulmonary embolism and possible need for repeat surgery in the future. Estimated Blood Loss: 2 cc Name of Procedure Performed Right middle trigger finger release Procedure Details Procedure Details: After administering appropriate antibiotics and anesthesia, the upper extremity was prepped and draped in the usual standard fashion. The arm was exsanguinated with Esmarch, and the tourniquet inflated to 250 mmHg. A longitudinal incision was made over the right middle digit's A1 rivka. Dissection was carried down to the flexor sheath with care taken to identify and protect the neurovascular bundles. The sheath was opened under direct vision with a scalpel, and then a scissor was used to release it under direct vision from the proximal extent of the A1 rivka to just proximal to the proximal digital crease. Meticulous hemostasis was maintained with electrocautery. The tendons were identified and atraumatically pulled to ensure that no triggering remained. Patient was noted to have a nodule at his flexor tendon After irrigating out the wound with copious amounts of sterile saline, the skin was closed with 3-0 nylon simple interrupted sutures. The wound was dressed and the patient was sent to the recovery room in good condition, having tolerated the procedure well. Condition Good Disposition Home FRANDY YOON . July 18, 2024 16:54
== END | disposition home or self-care (01) ==
LOC: SUR 06:57
PROVIDERS: ATTEND Orthopaedic Surgery Adult Reconstructive Orthopaedic Surgery
DX: M65.331 Trigger finger, right middle finger (principal); E11.9 Type 2 diabetes mellitus without complications; Z79.84 Long term (current) use of oral hypoglycemic drugs
CPT/HCPCS: 26055; 36415; 80053; 81001; 82962; 85025; 85610; 85730; J0690; J2003; J2250; J2405; J2704; J3490

== ENCOUNTER 2024-10-09 07:30 | Inpatient (IN) | payer MEDICAID ==
[~2024-10-09] VITALS: Ht 162.6 cm; Wt 97.9 kg
[~2024-10-09 07:30] MED LIST changes: -GLYCOPYRROLATE 0.2 MG/ML 1ML VIAL ONE; -HYDROmorphone HCL 2 MG/ML VL/or syr IV PRN; -KETAMINE 50mg/ML 1ml syringe ONE; -MIDAZOLAM HCL 2MG/2ML 2ml VIAL (1mg/ml) ONE; -ONDANSETRON HCL 4 MG/2 ML VIAL ONE; -PROPOFOL 10 MG/ML 20 ML IV ONE
--- NOTE | 2024-10-09 07:53 | ED.PDOC ---
GI ASSESSMENT HPI Comments 59 y/o M, with PMHx of DM presents to the ED for CC of nausea, vomiting, and diarrhea. Patient states, he has been experiencing symptoms of nausea, vomiting, and diarrhea with associated diffuse abdominal pain x4days. Patient reports, he recently traveled to [place] and believes symptoms may be d/t something he ate while traveling. Patient denies hematemesis, sweats, chills, or fever. No other associated symptoms, modifiers, recent injuries or sick contacts present at this time. Chief Complaint: Nausea/Vomiting Time Seen by MD: 07:40 Primary Care Provider: UNKNOWN Reviewed Notes: Nurses Notes, Medications, Allergies Allergies: Coded Allergies: NO KNOWN ALLERGIES (Unverified , 09/12/20) Home Meds Reported Medications Glucagon HCl (Glucagon Emergency Kit Fo) 1 Mg/Ml Yael, 1 MG IJ PRN, ML 07/09/24 Empagliflozin (Jardiance) 25 Mg Tab, 25 MG PO DAILY, TAB 07/09/24 Metformin Hydrochloride (Metformin Hcl) 850 Mg Tab, 1 TAB PO 01/13/24 Information Source: Patient Mode of Arrival: Ambulatory Timing: Days Duration: Since onset Prehospital treatment: None Vomitus: Watery Stool: Watery Severity: Moderate Recent: Travel Recent Hx of: Diabetes Pain Location: Diffuse Modifying Factors: Nothing Associated sign and symptoms: Nausea, Vomiting, Diarrhea, Abdominal Pain Past Medical History PAST MEDICAL HISTORY: DM Surgical History: Denies all surgeries Family History Family History: Reviewed,noncontributory to illness Social History Smoker: Non-Smoker Alcohol: Denies ETOH Use Drugs: Denies Drug Use Lives In: Home Constitutional: denies: chills, diaphoresis, fatigue, fever, malaise, sweats, weakness, others EENTM: denies: blurred vision, double vision, ear bleeding, ear discharge, ear drainage, ear pain, ear ringing, eye pain, eye redness, hearing loss, mouth pain, mouth swelling, nasal discharge, nose bleeding, nose congestion, nose pain, photophobia, tearing, throat pain, throat swelling, voice changes, others Respiratory: denies: cough, hemoptysis, orthopnea, SOB at rest, shortness of breath, SOB with excertion, stridor, wheezing, others Cardiovascular: denies: chest pain, dizzy spells, diaphoresis, Dyspnea on exertion, edema, irregular heart beat, left arm pain, lightheadedness, palpitations, PND, syncope, others Gastrointestinal: reports: abdominal pain, diarrhea, nausea, vomiting; denies: abdomen distended, blood streaked bowels, constipated, dysphagia, difficulty swallowing, hematemesis, melena, poor appetite, poor fluid intake, rectal bleeding, rectal pain, others Genitourinary: denies: burning, dysuria, flank pain, frequency, hematuria, incontinence, penile discharge, penile sore, pain, testicle pain, testicle swelling, urgency, others Neurological: denies: dizziness, fainting, headache, left sided numbness, left sided weakness, numbness, paresthesia, pre-existing deficit, right sided numbness, right sided weakness, seizure, speech problems, tingling, tremors, weakness, others Musculoskeletal: denies: back pain, gout, joint pain, joint swelling, muscle pain, muscle stiffness, neck pain, others Integumetry: denies: bruises, change in color, change in hair/nails, dryness, laceration, lesions, lumps, rash, wounds, others Allergic/Immunocompromised: denies: Difficulty Healing, Frequent Infections, Hives, Itching, others Hematologic/Lymphatic: denies: anemia, blood clots, easy bleeding, easy bruising, swollen glands, others Endocrine: denies: excessive hunger, excessive sweating, excessive thirst, excessive urination, flushing, intolerance to cold, intolerance to heat, unexplained weight gain, unexplained weight loss, others Psychiatric: denies: anxiety, bipolar disorder, depression, hopeless, panic disorder, schizophrenia, sleepless, suicidal, others All Other Systems: Reviewed and Negative Physical Exam General Appearance: No Apparent Distress, Normal HEENT: Normal ENT Inspection, Pharynx Normal Neck: Full Range of Motion, Non-Tender, Normal, Normal Inspection Respiratory: Chest Non-Tender, Lungs Clear, No Accessory Muscle Use, No Respiratory Distress, Normal Breath Sounds Cardiovascular: No Edema, No Murmur, No Gallop, Normal Peripheral Pulses, Regular Rate/Rhythm Breast Exam: Deferred Gastrointestinal: No Organomegaly, Non Tender, No Pulsatile Mass, Normal Bowel Sounds, Soft Genitalia: Deferred Pelvic: Deferred Rectal: Deferred Extremities: No calf tenderness, Normal capillary refill, Normal inspection, Normal range of motion, Non-tender, No pedal edema Musculoskeletal : Apperance: Normal Neurologic: Alert, printer technician II-XII nml as Tested, No Motor Deficits, Normal Affect, Normal Mood, No Sensory Deficits Cerebellar Function: Normal Reflexes: Normal Skin: Dry, Normal Color, Warm Lymphatic: No Adenopathy Was a procedure done? Was a procedure done?: No GI differential Dx Differential Diagnosis: Gastritis/PUD, Gastroenteritis, Electrolyte Imbalance, Food Poisoning, Bacterial, Viral X-Ray, Labs, Meds, VS Vital Signs Date Time Temp Pulse Resp B/P (MAP) Pulse Ox O2 Delivery O2 Flow Rate FiO2 10/09/24 07:40 99.1 119 18 120/67 (84) 97 99.1 Lab Test 10/09/24 07:58 Range/Units White Blood Count 9.5 4.4-10.8 10^3/uL Red Blood Count 5.43 4.5-5.90 10^6/uL Hemoglobin 17.6 H 13.5-17.5 g/dL Hematocrit 50.0 41.0-53.0 % Mean Corpuscular Volume 92.1 80.0-100.0 fL Mean Corpuscular Hemoglobin 32.4 H 28.0-32.0 pg Mean Corpuscular Hemoglobin Concent 35.2 32.0-36.0 g/dL Red Cell Distribution Width 14.0 11.8-14.3 % Platelet Count 172 140-450 10^3/uL Mean Platelet Volume 7.6 6.9-10.8 fL Neutrophils (%) (Auto) 82.6 H 37.0-80.0 % Lymphocytes (%) (Auto) 6.9 L 10.0-50.0 % Monocytes (%) (Auto) 10.4 0.0-12.0 % Eosinophils (%) (Auto) 0.0 0.0-7.0 % Basophils (%) (Auto) 0.1 0.0-2.0 % Neutrophils # (Auto) 7.8 1.6-8.6 10 ^3/uL Lymphocytes # (Auto) 0.7 0.4-5.4 10 ^3/uL Monocytes # (Auto) 1.0 0-1.3 10 ^3/uL Eosinophils # (Auto) 0 0-0.8 10 ^3/uL Basophils # (Auto) 0 0-0.2 10 ^3/uL Nucleated Red Blood Cells 0.1 % Sodium Level 135 L 136-145 mmol/L Potassium Level 3.7 3.5-5.1 mmol/L Chloride Level 98 98-107 mmol/L Carbon Dioxide Level 24 20-31 mmol/L Anion Gap 13 5-15 Blood Urea Nitrogen 20 9-23 mg/dL Creatinine 1.61 H 0.700-1.30 mg/dL Glomerular Filtration Rate Calc 49 >90 mL/min BUN/Creatinine Ratio 12.4 10.0-20.0 Serum Glucose 289 H 74-106 mg/dL Calcium Level 9.8 8.7-10.4 mg/dL Current Medications Medications (Trade) Dose Ordered Sig/Gonzalez Route Start Time Stop Time Status Last Admin Sodium Chloride 1,000 ml @ 1,000 mls/hr Q1H ONCE IV 10/09/24 08:00 10/09/24 08:59 DC 10/09/24 08:47 Ondansetron HCl (Zofran) 4 mg ONCE ONCE IV 10/09/24 08:00 10/09/24 08:01 DC 10/09/24 08:52 Famotidine (Pepcid Injection) 20 mg ONCE ONCE IV 10/09/24 08:00 10/09/24 08:01 DC 10/09/24 08:52 Al Hydrox/Mg Hydrox/Simethicone (Maalox Plus) 15 ml ONCE ONCE PO 10/09/24 08:00 10/09/24 08:01 DC 10/09/24 08:52 Time of 1ST Reevaluation: 08:10 Reevaluation 1ST: Unchanged Patient Education/Counseling: Diagnosis, Treatment Family Education/Counseling: No Family Present SEPSIS Sepsis Screen Vital Signs Date Time Temp Pulse Resp B/P (MAP) Pulse Ox O2 Delivery O2 Flow Rate FiO2 10/09/24 07:40 99.1 119 18 120/67 (84) 97 99.1 Laboratory Tests Test 10/09/24 07:58 White Blood Count 9.5 10^3/uL (4.4-10.8) Medications Medications Dose Ordered Sig/Gonzalez Route Start Time Stop Time Status Last Admin Dose Admin Al Hydrox/Mg Hydrox/Simethicone 15 ml ONCE ONCE PO 10/09/24 08:00 10/09/24 08:01 DC 10/09/24 08:52 Famotidine 20 mg ONCE ONCE IV 10/09/24 08:00 10/09/24 08:01 DC 10/09/24 08:52 Ondansetron HCl 4 mg ONCE ONCE IV 10/09/24 08:00 10/09/24 08:01 DC 10/09/24 08:52 Sodium Chloride 1,000 ml @ 1,000 mls/hr Q1H ONCE IV 10/09/24 08:00 10/09/24 08:59 DC 10/09/24 08:47 Departure 1 Departure Time of Disposition: 09:09 (Patient with gastroenteritis suffering from severe dehydration and an it ACACIA. We will admit patient for further workup) Impression: Primary Impression: ACACIA (acute kidney injury) Additional Impressions: Dehydration Gastroenteritis Disposition: ADMITTED INPATIENT Admit to: Med Surg Condition: Serious Critical Care Note Critical Care Time?: No Stability Stability form required: No Heart Score Heart Score: Heart Score Response (Comments) Value History N/A 0 EKG N/A 0 Age N/A 0 Risk Factors N/A 0 Troponin N/A 0 Total 0 I personally scribed for NATANAEL KWON MD ([email or web address]) on 10/09/24 at 07:53. Electronically submitted by Roya Madden ([email or web address]). NATANAEL KWON MD Oct 09, 2024 07:53
[2024-10-09 08:14] LABS: Potassium 3.7 mmol/L (3.5-5.1)
[2024-10-09 08:15] LABS: Anion Gap 13 (5-15); Calcium 9.8 mg/dL (8.7-10.4); Carbon Dioxide 24 mmol/L (20-31)
[2024-10-09 08:18] LABS: Hematocrit 50.0 % (41.0-53.0); Hemoglobin 17.6 g/dL (13.5-17.5); Mean Corpuscular Hemoglobin 32.4 pg (28.0-32.0); Mean Corpuscular Volume 92.1 fL (80.0-100.0); Nucleated Red Blood Cells % 0.1 %
[2024-10-09 08:19] LABS: Chloride 98 mmol/L (98-107); Sodium 135 mmol/L (136-145)
[2024-10-09 08:20] LABS: BUN/Creatinine Ratio 12.4 (10.0-20.0); Blood Urea Nitrogen 20 mg/dL (9-23)
[2024-10-09 08:24] LABS: Glucose 289 mg/dL (74-106)
[2024-10-09] MEDS: SODIUM CHLORIDE 0.9% 1,000 ML IV ONE ×2 (08:47→11:51)
[2024-10-09] MEDS: MAALOX PLUS or MAALOX 30 ML PO ONE (08:52)
[2024-10-09] MEDS: ONDANSETRON HCL 4 MG/2 ML VIAL IV ONE (08:52)
[2024-10-09] MEDS: FAMOTIDINE (10MG/ML) 2ML VL IV ONE (08:52)
[2024-10-09] MEDS ORDERED: DOCUSATE SOD 100 MG CAP PO PRN (09:30)
[2024-10-09] MEDS ORDERED: DEXTROSE (50%) 50ML SYRG IV PRN (09:30)
[2024-10-09] MEDS ORDERED: ATOR-507 PO (09:43)
[2024-10-09] MEDS ORDERED: METF-372 PO (09:43)
[2024-10-09] MEDS ORDERED: GLIP10TA9 PO (09:43)
[2024-10-09] MEDS ORDERED: LISI-275 PO (09:43)
[2024-10-09] MEDS ORDERED: SITA100T7 PO (09:43)
[2024-10-09] MEDS ORDERED: OMEP20TA69 PO (09:43)
--- NOTE | 2024-10-09 09:55 | DVHHP2 ---
History of Present Illness Reason for Visit: Nausea, vomiting, diarrhea History of Present Illness Jerome Jean V is a 59-year-old male with past medical history of diabetes, hypertension, and hyperlipidemia, who came to the hospital for nausea, vomiting, and diarrhea. Patient states he went to [place] on 10/05/2024 and that he ate tacos that he thinks made him sick. He states he has had nausea, vomiting, and diarrhea for 4 days. States his stool his just yellow liquid. He also states he has not been able to take any of his medications the last 4 days due to vomiting. Cardiovascular: HTN, hyperipidemia Endocrine: Diabetes Past Surgical History: Other (right hand) Smoke: No ALCOHOL: none Drugs: None Lives: with Family Domestic Violence: Neg Review of Systems Constitutional: Yes: Malaise; No: Fever, Chills, Sweats, Weakness, Other Eyes: No: Pain, Vision change, Conjunctivae inflammation, Eyelid inflammation, Other, Redness ENT: No: Ear pain, Ear discharge, Nose pain, Nose discharge, Nose congestion, Mouth pain, Mouth swelling, Throat pain, Throat swelling, Other Respiratory: No: Cough, Dry, Shortness of breath, SOB with excertion, Wheezing, Hemoptysis, Pleuritic Pain, Sputum, Wheezing, Other Cardiovascular: No: Chest Pain, Palpitations, Orthopnea, Paroxysmal Noc. Dyspnea, Edema, Lt Headedness, Other Gastrointestinal: Nausea, Vomiting, Diarrhea; No: Abdominal Pain, Constipation, Melena, Hematochezia, Other Genitourinary: No Dysuria, No Frequency, No Incontinence, No Hematuria, No Retention, No Other Musculoskeletal: No: other, neck pain, shoulder pain, arm pain, back pain, hand pain, leg pain, foot pain Skin: No: Rash, Lesions, Jaundice, Bruising, Other Neurological: No: Weakness, Numbness, Incoordination, Change in speech, Confusion, Seizures, Other Allergies: Coded Allergies: NO KNOWN ALLERGIES (Unverified , 09/12/20) Medications Current Medications Medications Dose Ordered Sig/Gonzalez Route Start Time Stop Time Status Last Admin Dose Admin Acetaminophen/ Hydrocodone Bitart 1 tab Q4HP PRN PO 10/09/24 09:30 UNV Ondansetron HCl 4 mg Q4HP PRN IV 10/09/24 09:30 UNV Docusate Sodium 100 mg BIDPRN PRN PO 10/09/24 09:30 UNV Acetaminophen 650 mg Q6HP PRN PO 10/09/24 09:30 UNV Diagnostic Test (Pha) 1 strip ACHS 10/09/24 11:30 UNV Insulin Human Regular HS SC 10/09/24 22:00 UNV Insulin Human Regular AC SC 10/09/24 11:30 UNV Dextrose 50 ml UD PRN IV 10/09/24 09:30 UNV Metronidazole 100 ml @ 100 mls/hr Q8HR IV 10/09/24 14:00 UNV Ceftriaxone Sodium 50 ml @ 100 mls/hr DAILY@09 IV 10/10/24 09:00 UNV Lisinopril 5 mg DAILY PO 10/09/24 10:00 UNV Patient Own Medication 40 mg HS PO 10/09/24 22:00 UNV Patient Own Medication 2 tab BID PO 10/09/24 10:00 UNV Patient Own Medication 20 mg HS PO 10/09/24 22:00 UNV Patient Own Medication 1 tab DAILY PO 10/09/24 10:00 UNV Exam Vital Signs Vital Signs Date Time Temp Pulse Resp B/P (MAP) Pulse Ox O2 Delivery O2 Flow Rate FiO2 10/09/24 08:55 Room Air* 0 21 10/09/24 07:40 99.1 119 18 120/67 (84) 97 99.1 General Appearance: Alert, Oriented X3, Cooperative, mild distress HEENT: Atraumatic, PERRLA Respiratory: Clear to auscultation, Normal air movement Cardiovascular: Regular rate, Normal S1, Normal S2, No murmurs Abdominal: Soft, Other (hyperactive bowel sounds) Extremities: No clubbing, No cyanosis, No edema, Normal pulses, No tenderness/swelling Skin: No rashes, No breakdown, No significant lesion Neuro: Normal gait, Normal speech, Strength at 5/5 X4 ext Psych/Mental Status: Mental status NL, Mood NL Labs/Xrays Labs Test 10/09/24 09:20 10/09/24 07:58 Range/Units White Blood Count 9.5 4.4-10.8 10^3/uL Red Blood Count 5.43 4.5-5.90 10^6/uL Hemoglobin 17.6 H 13.5-17.5 g/dL Hematocrit 50.0 41.0-53.0 % Mean Corpuscular Volume 92.1 80.0-100.0 fL Mean Corpuscular Hemoglobin 32.4 H 28.0-32.0 pg Mean Corpuscular Hemoglobin Concent 35.2 32.0-36.0 g/dL Red Cell Distribution Width 14.0 11.8-14.3 % Platelet Count 172 140-450 10^3/uL Mean Platelet Volume 7.6 6.9-10.8 fL Neutrophils (%) (Auto) 82.6 H 37.0-80.0 % Lymphocytes (%) (Auto) 6.9 L 10.0-50.0 % Monocytes (%) (Auto) 10.4 0.0-12.0 % Eosinophils (%) (Auto) 0.0 0.0-7.0 % Basophils (%) (Auto) 0.1 0.0-2.0 % Neutrophils # (Auto) 7.8 1.6-8.6 10 ^3/uL Lymphocytes # (Auto) 0.7 0.4-5.4 10 ^3/uL Monocytes # (Auto) 1.0 0-1.3 10 ^3/uL Eosinophils # (Auto) 0 0-0.8 10 ^3/uL Basophils # (Auto) 0 0-0.2 10 ^3/uL Nucleated Red Blood Cells 0.1 % Sodium Level 135 L 136-145 mmol/L Potassium Level 3.7 3.5-5.1 mmol/L Chloride Level 98 98-107 mmol/L Carbon Dioxide Level 24 20-31 mmol/L Anion Gap 13 5-15 Blood Urea Nitrogen 20 9-23 mg/dL Creatinine 1.61 H 0.700-1.30 mg/dL Glomerular Filtration Rate Calc 49 >90 mL/min BUN/Creatinine Ratio 12.4 10.0-20.0 Serum Glucose 289 H 74-106 mg/dL Calcium Level 9.8 8.7-10.4 mg/dL SEPSIS Sepsis Screen Date sepsis recognized/suspect: Oct 09, 2024 Time Sepsis recognized/suspect: 912 Recent Procedure: No On Antibiotic Therapy: No Respiratory Rate >20: No Heart Rate >90: No Temp<36 C (96.8 F) or >38.3 C: No SBP <90 or MAP <65 mmHG: No New Acute Mental Status Change: No Is the patient on CPAP, BIPAP,: No Physician Orders Urinalysis (10/09/24 09:20) Admit (10/09/24 09:20) 2 Gm Sodium Diet (10/09/24 Breakfast) Hydrocodone-Acet 5/325mg Tab ([place] (10/09/24 09:30) Ondansetron Hcl (Zofran) (10/09/24 09:30) Docusate Sodium Capsule (Colace Capsule) (10/09/24 09:30) Complete Blood Count (10/10/24 04:00) Comprehensive Metabolic Panel (10/10/24 04:00) Condition: Serious (10/09/24 09:20) Acetaminophen Tablet (Tylenol Tablet) (10/09/24 09:30) Glucose Blood (Accu-Chek Comfort Curve T (10/09/24 11:30) Insulin R (Human) (Insulin R) (10/09/24 22:00) Insulin R (Human) (Insulin R) (10/09/24 11:30) Dextrose 50% Syringe (10/09/24 09:30) Metronidazole 500mg/100ml (Flagyl 500mg/ (10/09/24 14:00) Metronidazole 500mg/100ml (Flagyl 500mg/ (10/09/24 09:30) Sodium Chloride 0.9% (10/09/24 09:30) Ceftriaxone 1gm/50ml D5w (Rocephin) (10/10/24 09:00) Ceftriaxone 1gm/50ml D5w (Rocephin) (10/09/24 09:30) Lisinopril Tablet (Zestril Tablet) (10/09/24 10:00) (Nf) Atorvastatin Calcium (Lipitor) (10/09/24 22:00) (Nf) Glipizide (10/09/24 10:00) (Nf) Omeprazole (Gnp Omeprazole) (10/09/24 22:00) (Nf) Sitagliptin Phosphate (Januvia) (10/09/24 10:00) Vital Signs Date Time Temp Pulse Resp B/P (MAP) Pulse Ox O2 Delivery O2 Flow Rate FiO2 10/09/24 08:55 Room Air* 0 21 10/09/24 07:40 99.1 119 18 120/67 (84) 97 99.1 Laboratory Tests Test 10/09/24 07:58 White Blood Count 9.5 10^3/uL (4.4-10.8) Medications Medications Dose Ordered Sig/Gonzalez Route Start Time Stop Time Status Last Admin Dose Admin Al Hydrox/Mg Hydrox/Simethicone 15 ml ONCE ONCE PO 10/09/24 08:00 10/09/24 08:01 DC 10/09/24 08:52 15 ML Famotidine 20 mg ONCE ONCE IV 10/09/24 08:00 10/09/24 08:01 DC 10/09/24 08:52 20 MG Ondansetron HCl 4 mg ONCE ONCE IV 10/09/24 08:00 10/09/24 08:01 DC 10/09/24 08:52 4 MG Sodium Chloride 1,000 ml @ 1,000 mls/hr Q1H ONCE IV 10/09/24 08:00 10/09/24 08:59 DC 10/09/24 08:47 1,000 MLS/HR Assessment/Plan Assessment/Plan Assessment: ACACIA (acute kidney injury), Dehydration, Intractable nausea and vomiting, Intractable diarrhea, Possible gastritis, Uncontrolled diabetes, Hypertension, Hyperlipidemia, Plan: Admit to Med-Surg, IV hydration, IV antibiotics, IV antiemetics, Send stool or ova, parasites, WBC, culture, & occult blood, Accu checks Q AC&HS with sliding scale, A1c, Home medications reconciled, Plan discussed with: Patient My Orders Orders - SHRUTI LIANG Procedure Category Date Status Time Urinalysis LAB 10/09/24 In Process 09:20 Admit ADMIT 10/09/24 Transmitted 09:20 2 Gm Sodium Diet DIET 10/09/24 Transmitted Breakfast Hydrocodone-Acet PHA 10/09/24 Logged 5/325mg Tab ([place] 09:30 Ondansetron Hcl PHA 10/09/24 Logged (Zofran) 09:30 Docusate Sodium PHA 10/09/24 Logged Capsule (Colace 09:30 Complete Blood Count LAB 10/10/24 Verified 04:00 Comprehensive LAB 10/10/24 Verified Metabolic Panel 04:00 Condition: Serious MAYA 10/09/24 In Process 09:20 Acetaminophen Tablet PHA 10/09/24 Logged (Tylenol Tablet) 09:30 Glucose Blood PHA 10/09/24 Logged (Accu-Chek Comfort 11:30 Insulin R (Human) PHA 10/09/24 Logged (Insulin R) 22:00 Insulin R (Human) 10/09/24 Logged (Insulin R) 11:30 Dextrose 50% Syringe PHA 10/09/24 Logged 09:30 Metronidazole PHA 10/09/24 Logged 500mg/100ml (Flagyl 14:00 Metronidazole PHA 10/09/24 Logged 500mg/100ml (Flagyl 09:30 Sodium Chloride 0.9% PHA 10/09/24 Logged 09:30 Ceftriaxone 1gm/50ml PHA 10/10/24 Logged D5w (Rocephin) 09:00 Ceftriaxone 1gm/50ml PHA 10/09/24 Logged D5w (Rocephin) 09:30 Lisinopril Tablet PHA 10/09/24 Logged (Zestril Tablet) 10:00 (Nf) Atorvastatin PHA 10/09/24 Logged Calcium (Lipitor) 22:00 (Nf) Glipizide 10/09/24 Logged 10:00 (Nf) Omeprazole (Gnp PHA 10/09/24 Logged Omeprazole) 22:00 (Nf) Sitagliptin 10/09/24 Logged Phosphate (Januvia) 10:00 Date of Service: Oct 09, 2024 Billing Provider: SHRUTI LIANG Common Visit Codes: [id number] INP/OBS CARE (MOD) SHRUTI LIANG Oct 09, 2024 09:55
[2024-10-09 09:57] LABS: Urine Protein, UAD 1+ (Negative)
[2024-10-09] MEDS ORDERED: GLIPIZIDE PO SCH (10:00)
[2024-10-09] MEDS: cefTRIAXone 1GM/50ML D5W 50 ML IV ONE (11:26)
[2024-10-09] MEDS: LISINOPRIL 5 MG TAB PO SCH (11:26)
[2024-10-09] MEDS: ACCU-CHEK COMFORT CURVE STRIP VI SCH (11:49)
[2024-10-09] MEDS: InsuLIN REG 1unit/0.01ml Soln (100units/ml) SC SCH ×2 (11:56→22:00)
[2024-10-09 12:31] VITALS: BP 110/64; PULSE 109; RESP 18; TEMP 98.2; O2SAT 98
[2024-10-09 12:43] VITALS: BP 110/64; PULSE 109; TEMP 98.2; O2SAT 98
[2024-10-09] MEDS: ONDANSETRON HCL 4 MG/2 ML VIAL IV PRN (15:29)
[2024-10-09] MEDS: HYDROcodone-ACET 5/325MG TAB PO PRN (15:29)
[2024-10-09 15:30] VITALS: BP 108/58; PULSE 110; RESP 18; O2SAT 95
[2024-10-09 18:26] VITALS: TEMP 99.6
[2024-10-09 20:00] VITALS: PULSE 115; RESP 17; O2SAT 95
[2024-10-09 21:00] VITALS: BP 118/71; PULSE 115; RESP 17; TEMP 99; O2SAT 92
[2024-10-09] MEDS ORDERED: PATIENTS OWN MEDICATION (Atorvastatin Calcium (Lipitor) 40 MG) PO SCH (22:00)
[2024-10-09] MEDS ORDERED: PATIENTS OWN MEDICATION (Omeprazole (Gnp Omeprazole) 20 MG) PO SCH (22:00)
[2024-10-09] MEDS: ATORVASTATIN 20 MG TAB PO SCH (22:39)
[2024-10-09] MEDS: glipiZIDE 5 MG TAB PO SCH (22:39)
[2024-10-09] MEDS: ACETAMINOPHEN 325 MG TAB PO PRN (23:34)
[2024-10-10] VITALS (7 sets, daily range): BP systolic 97–110; BP diastolic 53–79; PULSE 82–117; RESP 15–18; TEMP 97.9–100.2; O2SAT 90–96
[2024-10-10 06:21] LABS: Hematocrit 46.4 % (41.0-53.0); Hemoglobin 16.4 g/dL (13.5-17.5); Mean Corpuscular Hemoglobin 32.3 pg (28.0-32.0); Mean Corpuscular Volume 91.6 fL (80.0-100.0); Nucleated Red Blood Cells % 0.0 %
[2024-10-10 06:33] LABS: Alanine Aminotransferase 35 U/L (7-40); Albumin 4.4 g/dL (3.2-4.8); Alkaline Phosphatase 58 U/L (46-116); Anion Gap 9 (5-15); BUN/Creatinine Ratio 16.1 (10.0-20.0); Blood Urea Nitrogen 19 mg/dL (9-23); Calcium 8.7 mg/dL (8.7-10.4); Carbon Dioxide 25 mmol/L (20-31); Chloride 102 mmol/L (98-107); Total Protein 7.1 g/dL (5.7-8.2)
[2024-10-10 06:34] LABS: Bilirubin, Total 0.8 mg/dL (0.2-1.0)
[2024-10-10 06:40] LABS: Glucose 122 mg/dL (74-106); Potassium 3.0 mmol/L (3.5-5.1); Sodium 136 mmol/L (136-145)
[2024-10-10] MEDS: cefTRIAXone 1GM/50ML D5W 50 ML IV SCH (09:09)
[2024-10-10] MEDS: PANTOPRAZOLE 40 MG TAB PO SCH (09:11)
--- NOTE | 2024-10-10 11:55 | DVHPN2 ---
Subjective The patient is seen and examined at bedside. No complaint today. Reviewed: Care Plan, H&P, Labs, Medications, Previous Orders, Radiology Changes from previous H/P or p: No Changes Eyes: No Pain, No Vision change, No Conjunctivae inflammation, No Eyelid inflammation, No Other, No Redness ENT: No Ear pain, No Ear discharge, No Nose pain, No Nose discharge, No Nose congestion, No Mouth pain, No Mouth swelling, No Throat pain, No Throat swelling, No Other Cardiovascular: No Chest Pain, No Palpitations, No Orthopnea, No Paroxysmal Noc. Dyspnea, No Edema, No Lt Headedness, No Other Respiratory: No Cough, No Dry, No Shortness of breath, No SOB with excertion, No Wheezing, No Hemoptysis, No Pleuritic Pain, No Sputum, No Other Gastrointestinal: Nausea, Vomiting; No Abdominal Pain; Diarrhea; No Constipation, No Melena, No Hematochezia, No Other Genitourinary: No Dysuria, No Frequency, No Incontinence, No Hematuria, No Retention, No Other Musculoskeletal: No other, No neck pain, No shoulder pain, No arm pain, No back pain, No hand pain, No leg pain, No foot pain Skin: No Rash, No Lesions, No Jaundice, No Bruising, No Other Objective Vitals Vital Signs Date Time Temp Pulse Resp B/P (MAP) Pulse Ox O2 Delivery O2 Flow Rate FiO2 10/10/24 09:17 97/63 10/10/24 09:00 98.5 89 18 92 98.5 10/09/24 20:00 Room Air* 0 21 Intake/Output Intake and Output 10/10/24 07:00 Intake Total 2948 ml Output Total 6 ml Balance 2942 ml Intake Oral 1280 ml IV Total 1668 ml Output Urine Total 4 ml Stool Total 2 ml # Voids 9 # Bowel Movements 7 General Appearance: Alert, Oriented X3, Cooperative, No acute distress HEENT: Atraumatic, PERRLA, EOMI, Mucous membr. moist/pink Neck: Supple Lungs: Clear to auscultation, Normal air movement Cardiovascular: Regular rate, Normal S1, Normal S2, No murmurs, Gallops, Rubs Abdomen: Normal bowel sounds, Soft, No tenderness Neuro: Cranial nerves 3-12 NL Psych/Mental Status: Mental status NL Medications Current Medications Medications Dose Ordered Sig/Gonzalez Route Start Time Stop Time Status Last Admin Dose Admin Acetaminophen/ Hydrocodone Bitart 1 tab Q4HP PRN PO 10/09/24 09:30 10/09/24 15:29 1 TAB Ondansetron HCl 4 mg Q4HP PRN IV 10/09/24 09:30 10/10/24 09:09 4 MG Docusate Sodium 100 mg BIDPRN PRN PO 10/09/24 09:30 Acetaminophen 650 mg Q6HP PRN PO 10/09/24 09:30 10/10/24 05:30 650 MG Diagnostic Test (Pha) 1 strip ACHS 10/09/24 11:30 10/10/24 05:32 1 STRIP Insulin Human Regular HS SC 10/09/24 22:00 10/09/24 22:00 4 UNITS Insulin Human Regular AC SC 10/09/24 11:30 10/10/24 05:32 2 UNITS Dextrose 50 ml UD PRN IV 10/09/24 09:30 Metronidazole 100 ml @ 100 mls/hr Q8HR IV 10/09/24 14:00 10/10/24 05:26 100 MLS/HR Ceftriaxone Sodium 50 ml @ 100 mls/hr DAILY@09 IV 10/10/24 09:00 10/10/24 09:09 100 MLS/HR Lisinopril 5 mg DAILY PO 10/09/24 10:00 10/09/24 11:26 5 MG Patient Own Medication 40 mg HS PO 10/09/24 22:00 UNV Patient Own Medication 2 tab BID PO 10/09/24 10:00 UNV Patient Own Medication 20 mg HS PO 10/09/24 22:00 UNV Patient Own Medication 1 tab DAILY PO 10/09/24 10:00 Atorvastatin Calcium 40 mg HS PO 10/09/24 22:00 10/09/24 22:39 40 MG Glipizide 20 mg BID PO 10/09/24 22:00 10/10/24 09:22 20 MG Pantoprazole Sodium 40 mg DAILY PO 10/10/24 10:00 10/10/24 09:11 40 MG Laboratory Results Laboratory Tests 10/10/24 05:40 Chemistry Test 10/10/24 05:40 Albumin 4.4 g/dL (3.2-4.8) Calcium Level 8.7 mg/dL (8.7-10.4) Total Protein 7.1 g/dL (5.7-8.2) LFT Test 10/10/24 05:40 Alanine Aminotransferase (ALT) 35 U/L (7-40) Alkaline Phosphatase 58 U/L (46-116) Aspartate Amino Transferase (AST) 30 U/L (13-40) Total Bilirubin 0.8 mg/dL (0.2-1.0) Urinalysis Test 10/09/24 09:20 Urine Color Light-orange (Yellow) Urine Clarity Clear (Clear) Urine pH 5.5 (5.0-9.0) Urine Specific [place] 1.034 (1.001-1.035) Urine Protein 1+ (Negative) H Urine Ketones 1+ (Negative) H Urine Blood Negative /uL (Negative) Urine Nitrite Negative (Negative) Urine Bilirubin Negative (Negative) Urine Urobilinogen Normal mg/dL (Negative) Urine Leukocyte Esterase Negative /uL (Negative) Urine RBC 1 /hpf (0 - 3) Urine Microscopic WBC 1 /HPF (0-3) Urine Squamous Epithelial Cells None seen /hpf (<5) Urine Bacteria None seen /hpf (None Seen) Urine Hyaline Casts Few /lpf (0 - 2) Urine Mucus Few (None Seen) Urine Glucose 3+ mg/dL (Normal) H Microbiology Microbiology Date/Time Source Procedure Growth Status 10/09/24 14:42 Stool Stool Culture - Preliminary Resulted 10/09/24 14:42 Stool Shiga Toxin I & II Pending Resulted Labs and/or images reviewed: Labs reviewed by me Assessment/Plan Assessment/Plan ACACIA (acute kidney injury), Dehydration, Intractable nausea and vomiting, Intractable diarrhea, Possible gastritis, and ?colitis Uncontrolled diabetes, Hypertension, Hyperlipidemia, Plan: Continuing current management, Continuing IV hydration, Continuing IV antibiotics, Rocephin and Flagyl IV antiemetics, Zofran Send stool or ova, parasites, WBC, culture, & occult blood, Accu checks Q AC&HS with sliding scale, A1c, Home medications reconciled, We will give Imodium as needed for diarrhea Replace electrolytes as needed I will order a CT scan abdomen pelvis without contrast to rule out colitis. This medical document was created using an electronic medical record system with [employer] direct computerized dictation system. Although this document has been carefully reviewed, there may still be some phonetic and typographical errors. These areas are purely typographical due to imperfections of the software programs, and do not reflect any compromise in the patient's medical care. Plan discussed with: Patient Date of Service: Oct 10, 2024 Billing Provider: AYESHA PABLO MD Common Visit Codes: [id number] INP/OBS CARE(HIGH) AYESHA PABLO MD Oct 10, 2024 11:55
[2024-10-10] MEDS: LOPERAMIDE HCL 2 MG CAP/TAB PO SCH (16:12)
[2024-10-11 01:00] VITALS: BP 101/66; PULSE 95; RESP 15; TEMP 98.4; O2SAT 91
[2024-10-11 05:00] VITALS: BP 98/63; PULSE 85; RESP 15; TEMP 98.4; O2SAT 99
--- NOTE | 2024-10-11 09:17 | DVH ---
CT CT AB PEL WO CON-NO ORAL OR IV INDICATION: rule out colitis/obstruction. EXAM DATE: 10/11/2024 08:18 AM COMPARISON: CT ABD PELVIS WO CONTRAST on DOS: 12/25/21 RADIATION DOSE: CTDIvol: 6.94 mGy, DLP: 366.26 mGy*cm PROCEDURE: Helical CT images were obtained of the abdomen and pelvis without IV contrast Sagittal and coronal reconstructions are provided. ORAL CONTRAST: None. ADDITIONAL IMAGES / REFORMATS: None All C T scans at this medical facility are performed using dose modulation techniques as appropriate to a p erformed exam including the following: Automated exposure control was utilized; adjustment of the MA and/or KV according to patient size; and use of iterative reconstruction technique. FINDINGS: LUNG BASE: Normal. LIVER: Hepatic steatosis. GALLBLADDER AND BILIARY TREE: No calcified gallstones. Normal caliber wall. No intra- or extrahepatic biliary ductal dilation. PANCREAS: Normal. SPLEEN: Normal. BOWEL: Normal. Normal appendix. ADRENALS: Normal. KIDNEYS AND URETER: Normal. BLADDER: Normal. REPRODUCTIVE ORGANS: Normal. LYMPH NODES:No lymphadenopathy. PERITONEUM: No ascites or free air. No other fluid collection. VESSELS: Scattered atherosclerotic calcifications are noted. RETROPERITONEUM: Normal. ABDOMINAL WALL: Normal. BONES: Scattered osseous degenerative changes are noted. IMPRESSION: No acute intraabdominal abnormality. No bowel obstruction or colitis visualized. Hepatic steatosis.
[2024-10-11 09:58] LABS: Hematocrit 43.4 % (41.0-53.0); Hemoglobin 15.4 g/dL (13.5-17.5); Mean Corpuscular Hemoglobin 31.9 pg (28.0-32.0); Mean Corpuscular Volume 89.9 fL (80.0-100.0); Nucleated Red Blood Cells % 0.1 %
[2024-10-11 10:00] VITALS: BP 98/67; PULSE 79; RESP 18; TEMP 98.4; O2SAT 98
[2024-10-11 10:03] LABS: Anion Gap 9 (5-15); Carbon Dioxide 27 mmol/L (20-31); Chloride 100 mmol/L (98-107)
[2024-10-11 10:04] LABS: Calcium 9.0 mg/dL (8.7-10.4)
[2024-10-11 10:08] LABS: Potassium 2.8 mmol/L (3.5-5.1); Sodium 136 mmol/L (136-145)
[2024-10-11 10:10] LABS: BUN/Creatinine Ratio 12.5 (10.0-20.0); Blood Urea Nitrogen 15 mg/dL (9-23); Glucose 140 mg/dL (74-106)
--- NOTE | 2024-10-11 11:46 | DVHDS2 ---
Discharge Summary Date of Admission Oct 09, 2024 at 09:20 Date of Discharge: Oct 11, 2024 Admitting Diagnosis ACACIA (acute kidney injury), Dehydration, Intractable nausea and vomiting, Intractable diarrhea, Possible gastritis, and ?colitis Uncontrolled diabetes, Hypertension, Hyperlipidemia, Labs/Diagnostic Data: Laboratory Results Test 10/11/24 11:07 10/11/24 09:04 10/10/24 05:40 10/09/24 14:42 POC Glucose 146 mg/dl (70-106) White Blood Count 6.2 10^3/uL (4.4-10.8) Red Blood Count 4.83 10^6/uL (4.5-5.90) Hemoglobin 15.4 g/dL (13.5-17.5) Hematocrit 43.4 % (41.0-53.0) Mean Corpuscular Volume 89.9 fL (80.0-100.0) Mean Corpuscular Hemoglobin 31.9 pg (28.0-32.0) Mean Corpuscular Hemoglobin Concent 35.5 g/dL (32.0-36.0) Red Cell Distribution Width 13.7 % (11.8-14.3) Platelet Count 145 10^3/uL (140-450) Mean Platelet Volume 7.8 fL (6.9-10.8) Neutrophils (%) (Auto) 74.8 % (37.0-80.0) Lymphocytes (%) (Auto) 12.6 % (10.0-50.0) Monocytes (%) (Auto) 12.2 % (0.0-12.0) Eosinophils (%) (Auto) 0.2 % (0.0-7.0) Basophils (%) (Auto) 0.2 % (0.0-2.0) Neutrophils # (Auto) 4.7 10 ^3/uL (1.6-8.6) Lymphocytes # (Auto) 0.8 10 ^3/uL (0.4-5.4) Monocytes # (Auto) 0.8 10 ^3/uL (0-1.3) Eosinophils # (Auto) 0 10 ^3/uL (0-0.8) Basophils # (Auto) 0 10 ^3/uL (0-0.2) Nucleated Red Blood Cells 0.1 % Sodium Level 136 mmol/L (136-145) Potassium Level 2.8 mmol/L (3.5-5.1) Chloride Level 100 mmol/L (98-107) Carbon Dioxide Level 27 mmol/L (20-31) Anion Gap 9 (5-15) Blood Urea Nitrogen 15 mg/dL (9-23) Creatinine 1.20 mg/dL (0.700-1.30) Glomerular Filtration Rate Calc 69 mL/min (>90) BUN/Creatinine Ratio 12.5 (10.0-20.0) Serum Glucose 140 mg/dL (74-106) Calcium Level 9.0 mg/dL (8.7-10.4) Total Bilirubin 0.8 mg/dL (0.2-1.0) Aspartate Amino Transferase (AST) 30 U/L (13-40) Alanine Aminotransferase (ALT) 35 U/L (7-40) Alkaline Phosphatase 58 U/L (46-116) Total Protein 7.1 g/dL (5.7-8.2) Albumin 4.4 g/dL (3.2-4.8) Stool Occult Blood Positive (Negative) Stool Occult Blood Sample #3 (Negative) Stool for White Cells Few Test 10/09/24 09:20 10/09/24 07:58 Urine Color Light-orange (Yellow) Urine Clarity Clear (Clear) Urine pH 5.5 (5.0-9.0) Urine Specific [place] 1.034 (1.001-1.035) Urine Protein 1+ (Negative) Urine Ketones 1+ (Negative) Urine Blood Negative /uL (Negative) Urine Nitrite Negative (Negative) Urine Bilirubin Negative (Negative) Urine Urobilinogen Normal mg/dL (Negative) Urine Leukocyte Esterase Negative /uL (Negative) Urine RBC 1 /hpf (0 - 3) Urine Microscopic WBC 1 /HPF (0-3) Urine Squamous Epithelial Cells None seen /hpf (<5) Urine Bacteria None seen /hpf (None Seen) Urine Hyaline Casts Few /lpf (0 - 2) Urine Mucus Few (None Seen) Urine Glucose 3+ mg/dL (Normal) Hemoglobin A1c 10.5 % A1C (<5.7) Other Laboratory Tests 10/11/24 09:04 Brief Hx & Hospital Course: This is a 59 years old male with past medical history of diabetes, hypertension, hyperlipidemia come to the hospital for intractable nausea and vomiting and diarrhea. The patient apparently went to [place] on Tuesday and ate a taco. After that he feel very sick and become intractable nausea vomiting. The patient came to emergency department for further evaluation. CT scan showed no abnormality. No colitis. C diff was sent and negative. Stool culture showed Salmonella which has been [facility] department. The patient was on IV antibiotic with Rocephin and Flagyl. Today his diarrhea improved. I am going to discharge him home. Advised him to follow up with primary care physician 1-2 weeks. Activity as tolerated. Diet per home diet. Physical exam: HEENT: Normocephalic atraumatic pupils equal react to light and accommodation. Extraocular muscles intact, conjunctiva pink, oropharynx moist, no thrush, no exudate. Lymphatic: No lymphadenopathy Cardiovascular exam: S1, S2 was heard. No murmurs, rubs, gallops Lung: Clear on auscultation bilaterally, no wheeze, rale, rhonchi. GI: Abdominal soft, nondistended, nontenderness, positive bowel sounds. Extremity: No crepitus, cyanosis, edema. Pedal pulses present bilateral. Full range of motion. Skin: Normal turgor, no rash. Psych: Alert, oriented x3. Neurology: No focal deficits, cranial nerve II to XII grossly intact. This medical document was created using an electronic medical record system with [employer] direct computerized dictation system. Although this document has been carefully reviewed, there may still be some phonetic and typographical errors. These areas are purely typographical due to imperfections of the software programs, and do not reflect any compromise in the patient's medical care. Condition at Discharge: Stable Final Diagnosis/Problems List ACACIA (acute kidney injury), Dehydration, Intractable nausea and vomiting, Intractable diarrhea, Possible gastritis, and ?colitis Uncontrolled diabetes, Hypertension, Hyperlipidemia, Discharge Disposition: Home Discharge Instruct/Medications Diet: Regular Activity: No Restrictions, As Tolerated Follow Up/Referral: pcp 1-2 weeks Medications: Flagyl 500mg tid x 7 days Levaquin 500mg daily x 7 days Immodium 2 mg PO q6hPRN for diarrhea Scheduled Atorvastatin Calcium (Lipitor), 40 MG PO HS, (Reported) Glipizide (Glipizide), 2 TAB PO BID, (Reported) Glucagon HCl (Glucagon Emergency Kit Fo), 1 MG IJ PRN, (Reported) Levofloxacin Hemihydrate (Levaquin 500 Mg), 1 TAB PO DAILY Lisinopril (Lisinopril), 1 TAB PO DAILY, (Reported) Metformin Hydrochloride (Metformin Hcl), 1 TAB PO BID, (Reported) Metronidazole (Flagyl), 1 TAB PO TID Omeprazole (Gnp Omeprazole), 20 MG PO HS, (Reported) Sitagliptin Phosphate (Januvia), 1 TAB PO DAILY, (Reported) Scheduled PRN Loperamide Hcl (Imodium), 2 MG PO Q6HPRN PRN Discontinued Medications Empagliflozin (Jardiance), 25 MG PO DAILY, (Reported) Metformin Hydrochloride (Metformin Hcl), 1 TAB PO, (Reported) Discharge Statement: "Patient was advised to return to the ER or call 911 if any headaches, dizziness, shortness of breath, chest pain, abdominal pain, bleeding, fevers, or worsening of medical condition. Patient was counseled about treatment plan, medications, possible side effects, patientverbalized understanding. All questions were answered to the best of my ability. This discharge took greater then 30 minutes in planning, reviewing documentation, counseling the patient, and discussing with other team members." ASSESSMENT ASSESSMENT Assessment ACACIA Date of Service: Oct 11, 2024 Billing Provider: AYESHA PABLO MD Common Visit Codes: 69580-XRZ/OBS DISCH DAY >30min AYESHA PABLO MD Oct 11, 2024 11:46
[2024-10-11] MEDS ORDERED: LEVO500T91 PO (11:47)
[2024-10-11] MEDS ORDERED: LOPE2CAP16 PO (11:47)
[2024-10-11] MEDS ORDERED: METR-344 PO (11:47)
[2024-10-11 13:00] VITALS: BP 107/64; PULSE 72; RESP 18; TEMP 97.6; O2SAT 98
[2024-10-11] MEDS: POTASSIUM CHL 20 Meq TABLET PO ONE (15:56)
[2024-10-11 17:00] VITALS: BP 110/75; PULSE 74; RESP 18; TEMP 98.4; O2SAT 97
[2024-10-15] MEDS ORDERED: BACDST PO (09:51)
== END 2024-10-11 18:23 | disposition home or self-care (01) | DRG 248 ==
LOC: ER 07:30 → OVERFLOW 09:20 → WEST WING 15:16
PROVIDERS: ADMIT Internal Medicine; ATTEND Internal Medicine
DX: A04.9 Bacterial intestinal infection, unspecified (principal); N17.0 Acute kidney failure with tubular necrosis; E11.9 Type 2 diabetes mellitus without complications; I10 Essential (primary) hypertension; E78.5 Hyperlipidemia, unspecified; E86.0 Dehydration
CPT/HCPCS: 36415; 74176; 80048; 80053; 81001; 82270; 82962; 83036; 85025; 85048; 87045; 87077; 87177; 87186; 87427; 87493; 96374; G0378; J1815; J2405; J3490

== ENCOUNTER 2025-01-12 09:58 | Emergency (ER) | payer MEDICAID ==
[~2025-01-12] VITALS: Ht 162.6 cm; Wt 67.8 kg
[~2025-01-12 09:58] MED LIST changes: +ATOR-507 PO; +BACDST PO; -EMPA1TAB3 PO; +GLIP10TA9 PO; +LEVO500T91 PO; +LISI-275 PO; +LOPE2CAP16 PO; -METF-371 PO; +METF-372 PO; +METR-344 PO; +OMEP20TA69 PO; +SITA100T7 PO
--- NOTE | 2025-01-12 10:20 | ECG ---
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
--- NOTE | 2025-01-12 10:23 | ED.PDOC ---
GI ASSESSMENT HPI Comments 59 y.o male with PMHx of DM, presents to the ED for a chief complaint of constipation x 3 days followed by abdominal discomfort and nausea. Patient reports urgency to pass bowel movement, attempts to use the restroom but denies any output or flatulence. Patient started Ozempic and had first injection 3 days ago. He denies any vomiting, fever, chills. Chief Complaint: Abdominal Pain Time Seen by MD: 10:20 Primary Care Provider: [place] Reviewed Notes: Nurses Notes, Medications, Allergies Allergies: Coded Allergies: NO KNOWN ALLERGIES (Unverified , 09/12/20) Home Meds Active Scripts Ibuprofen Micronized (MOTRIN TABLET) 600 Mg Tb, 600 MG PO TID PRN for 3 Days, #9 TAB *Black box warning-NSAIDS can increase risk of DE & hypertension, GI irritation, ulceration, bleed, perferation. Do not use post cardiac surgery. Use short duration/lowest effective dose. Prov:KRISTIE NEGRETE MD 01/12/25 Sulfamethoxazole W/Trimethopri (Bactrim Ds Tablet) 1 Tab Tb, 1 TAB PO BID, #20 TAB Prov:AYESHA PABLO MD 10/15/24 Loperamide Hcl (Imodium) 2 Mg Cp, 2 MG PO Q6HPRN PRN, #30 CAP Prov:AYESHA PABLO MD 10/11/24 Metronidazole (Flagyl) 500 Mg Tab, 1 TAB PO TID, #21 TAB Prov:AYESHA PABLO MD 10/11/24 Levofloxacin Hemihydrate (LEVAQUIN 500 MG) 500 Mg Tab, 1 TAB PO DAILY, #7 TAB Prov:AYESHA PABLO MD 10/11/24 Reported Medications Glipizide (Glipizide) 10 Mg Tab, 2 TAB PO BID 10/09/24 Sitagliptin Phosphate (Januvia) 100 Mg Tab, 1 TAB PO DAILY 10/09/24 Lisinopril (Lisinopril) 5 Mg Tab, 1 TAB PO DAILY 10/09/24 Metformin Hydrochloride (Metformin Hcl) 1,000 Mg Tab, 1 TAB PO BID 10/09/24 Omeprazole (Gnp Omeprazole) 20 Mg Tab, 20 MG PO HS 10/09/24 Atorvastatin Calcium (Lipitor) 40 Mg Tab, 40 MG PO HS 10/09/24 Glucagon HCl (Glucagon Emergency Kit Fo) 1 Mg/Ml Yael, 1 MG IJ PRN, ML 07/09/24 Information Source: Patient Mode of Arrival: Ambulatory Timing: Days (3) Duration: Since onset Quality: Aching Vomitus: None Stool: Empty Severity: Moderate Recent: None Recent Hx of: None Pain Location: Diffuse Modifying Factors: Nothing Associated sign and symptoms: Nausea, Constipation, Abdominal Pain Past Medical History PAST MEDICAL HISTORY: DM Surgical History: Denies all surgeries Family History Family History: Reviewed,noncontributory to illness Social History Smoker: Non-Smoker Alcohol: Denies ETOH Use Drugs: Denies Drug Use Lives In: Home Constitutional: denies: chills, diaphoresis, fatigue, fever, malaise, sweats, weakness, others EENTM: denies: blurred vision, double vision, ear bleeding, ear discharge, ear drainage, ear pain, ear ringing, eye pain, eye redness, hearing loss, mouth pain, mouth swelling, nasal discharge, nose bleeding, nose congestion, nose pain, photophobia, tearing, throat pain, throat swelling, voice changes, others Respiratory: denies: cough, hemoptysis, orthopnea, SOB at rest, shortness of breath, SOB with excertion, stridor, wheezing, others Cardiovascular: denies: chest pain, dizzy spells, diaphoresis, Dyspnea on exertion, edema, irregular heart beat, left arm pain, lightheadedness, palpitations, PND, syncope, others Gastrointestinal: reports: abdominal pain, constipated, nausea; denies: abdomen distended, blood streaked bowels, diarrhea, dysphagia, difficulty swallowing, hematemesis, melena, poor appetite, poor fluid intake, rectal bleeding, rectal pain, vomiting, others Genitourinary: denies: burning, dysuria, flank pain, frequency, hematuria, incontinence, penile discharge, penile sore, pain, testicle pain, testicle swelling, urgency, others Neurological: denies: dizziness, fainting, headache, left sided numbness, left sided weakness, numbness, paresthesia, pre-existing deficit, right sided numbness, right sided weakness, seizure, speech problems, tingling, tremors, weakness, others Musculoskeletal: denies: back pain, gout, joint pain, joint swelling, muscle pain, muscle stiffness, neck pain, others Integumetry: denies: bruises, change in color, change in hair/nails, dryness, laceration, lesions, lumps, rash, wounds, others Allergic/Immunocompromised: denies: Difficulty Healing, Frequent Infections, Hives, Itching, others Hematologic/Lymphatic: denies: anemia, blood clots, easy bleeding, easy bruising, swollen glands, others Endocrine: denies: excessive hunger, excessive sweating, excessive thirst, excessive urination, flushing, intolerance to cold, intolerance to heat, unexplained weight gain, unexplained weight loss, others Psychiatric: denies: anxiety, bipolar disorder, depression, hopeless, panic disorder, schizophrenia, sleepless, suicidal, others All Other Systems: Reviewed and Negative Physical Exam General Appearance: Moderate Distress HEENT: Normal ENT Inspection, Pharynx Normal, TMs Normal Neck: Full Range of Motion, Non-Tender, Normal, Normal Inspection Respiratory: Chest Non-Tender, Lungs Clear, No Accessory Muscle Use, No Respiratory Distress, Normal Breath Sounds Cardiovascular: No Edema, No JVD, No Murmur, No Gallop, Normal Peripheral Pulses, Regular Rate/Rhythm Breast Exam: Deferred Gastrointestinal: No Organomegaly, Non Tender, No Pulsatile Mass, Normal Bowel Sounds, Soft Genitalia: Deferred Pelvic: Deferred Rectal: Deferred Extremities: No calf tenderness, Normal capillary refill, Normal inspection, Normal range of motion, Non-tender, No pedal edema Musculoskeletal : Apperance: Normal Neurologic: Alert, lan support specialist II-XII nml as Tested, No Motor Deficits, Normal Affect, Normal Mood, No Sensory Deficits Cerebellar Function: Normal Reflexes: Normal Skin: Dry, Normal Color, Warm Peripheral Pulses: 3+ Radial (R), 3+ Radial (L) Lymphatic: No Adenopathy EKG EKG : Pulse Rate (adult): 73 Cardiac Rhythm: NSR Was a procedure done? Was a procedure done?: No GI differential Dx Differential Diagnosis: Bowel Obstruction, Constipation, Esophagitis, Gastritis/PUD, Gastroenteritis, Inflammatory BD X-Ray, Labs, Meds, VS Vital Signs Date Time Temp Pulse Resp B/P (MAP) Pulse Ox O2 Delivery O2 Flow Rate FiO2 01/12/25 12:45 77 18 98 Room Air 01/12/25 12:45 97.9 77 18 122/78 (93) 98 97.9 01/12/25 10:23 73 01/12/25 10:13 73 01/12/25 09:59 97.8 79 18 130/87 96 97.8 Lab Test 01/12/25 10:10 Range/Units POC Glucose 153 H 70-106 mg/dl Patient alert. Came in because of abdominal pain. Vitals stable. Answering all questions. Abdomen is soft pain CT scan of the abdomen reviewed does not show any acute changes pain Was given prescription of Motrin. Explained to the patient. Was told to follow up with his primary care physician. Was told to come back if there is any problem. Time of 1ST Reevaluation: 10:23 Reevaluation 1ST: Unchanged Patient Education/Counseling: Diagnosis, Treatment, Prognosis Family Education/Counseling: No Family Present SEPSIS Sepsis Screen Date sepsis recognized/suspect: Jan 12, 2025 Time Sepsis recognized/suspect: 999 Recent Procedure: No On Antibiotic Therapy: No Respiratory Rate >20: No Heart Rate >90: No Temp<36 C (96.8 F) or >38.3 C: No SBP <90 or MAP <65 mmHG: No New Acute Mental Status Change: No Is the patient on CPAP, BIPAP,: No Physician Orders Ct Ab Pel Wo Con-No Oral Or Iv (01/12/25 10:19) Vital Signs Date Time Temp Pulse Resp B/P (MAP) Pulse Ox O2 Delivery O2 Flow Rate FiO2 01/12/25 12:45 77 18 98 Room Air 01/12/25 12:45 97.9 77 18 122/78 (93) 98 97.9 01/12/25 10:23 73 01/12/25 10:13 73 01/12/25 09:59 97.8 79 18 130/87 96 97.8 Departure 1 Departure Time of Disposition: 12:19 Impression: Primary Impression: Acute abdominal pain Disposition: 01 HOME / SELF CARE / HOMELESS Condition: Good e-Prescriptions Ibuprofen Micronized (MOTRIN TABLET) 600 Mg Tb 600 MG PO TID PRN for 3 Days, #9 TAB *Black box warning-NSAIDS can increase risk of DE & hypertension, GI irritation, ulceration, bleed, perferation. Do not use post cardiac surgery. Use short duration/lowest effective dose. Prov: KRISTIE NEGRETE MD 01/12/25 Discharged With: Self Critical Care Note Critical Care Time?: No Stability Stability form required: No I personally scribed for KRISTIE NEGRETE MD ([email or web address]) on 01/12/25 at 10:23. Electronically submitted by Saumya Ayala ([facility]). KRISTIE NEGRETE MD Jan 12, 2025 10:23
--- NOTE | 2025-01-12 11:10 | DVH ---
Exam: CT CT AB PEL WO CON-NO ORAL OR IV History: Constipation for 3 days. Comparison Study: CT CT AB PEL WO CON-NO ORAL OR IV on DOS: 10/11/24, CT ABD PELVIS WO CONTRAST on DOS : 12/25/21 Technique: Multidetector spiral CT of the abdomen and pelvis was performed from lung bases to pubic s ymphysis. Imaging was performed without intravenous contrast. Coronal and sagittal multiplanar reform ats were obtained from the axial data set by the technologist. Radiation Dose : 1. Abdomen/Pelvis: CTDIvol 10.6 mGy, DLP 551.9 mGy*cm. Findings: Evaluation of vasculature and solid organs is limited due to lack of intravenous contrast use. Lung Bases: Lung bases are clear. Visualized portions of the heart and pericardium are unremarkable. Liver: The liver is normal in size. No focal lesions. Diffusely hypoattenuating liver parenchyma con sistent with hepatic steatosis. Gallbladder and Biliary Tree: The gallbladder is unremarkable. No intrahepatic or extrahepatic biliar y ductal dilatation. Spleen: Unremarkable Pancreas: The pancreas is grossly unremarkable. Adrenal Glands: Unremarkable Kidneys: Kidneys are unremarkable without calculi or hydronephrosis. GI tract: The stomach is grossly normal in appearance. No evidence of small bowel wall thickening or abnormal dilatation to suggest bowel obstruction. The colon is unremarkable. The appendix is visualiz ed and normal. Peritoneum/mesentery/retroperitoneum. No evidence of free intraperitoneal air. No ascites. No evidenc e of suspicious lymphadenopathy. Abdominal Wall: Unremarkable. Vasculature: The visualized abdominal aorta is normal in size and caliber. Evaluation of abdominal a nd pelvic vessels is limited due to lack of intravenous contrast. Urinary Bladder: Grossly unremarkable for degree of distention. Pelvic Organs: Prostate is enlarged measuring 5.2 cm. Musculoskeletal: No aggressive focal bony lesions, acute fractures or dislocation. IMPRESSION: 1. No acute abdominal or pelvic findings. 2. Prostatomegaly. 3. Hepatic steatosis.
[2025-01-12] MEDS ORDERED: IBU600T PO (12:19)
[2025-01-12] MEDS: KETOROLAC TROMETH 60MG/2ML VIAL IM ONE (12:43)
[2025-01-12 14:22] VITALS: BP 125/79; PULSE 81; RESP 16; TEMP 98.2; O2SAT 94
== END 2025-01-12 14:24 | disposition home or self-care (01) ==
LOC: ER 09:58
DX: R10.84 Generalized abdominal pain (principal); E11.9 Type 2 diabetes mellitus without complications; Z79.899 Other long term (current) drug therapy; Z79.84 Long term (current) use of oral hypoglycemic drugs
CPT/HCPCS: 74176; 82947; 82962; 93005